=== PATIENT | female | born 1970 | race Caucasian/White ===

== ENCOUNTER 2019-04-07 09:26 | Outpatient (CLI) | payer OTHER, SELFPAY ==
[2019-04-07 10:25] LABS: Alanine Aminotransferase 14 U/L (4-35); Albumin Level 4.3 g/dL (3.5-5.1); Alkaline Phosphatase 56 U/L (38-126); Aspartate Amino Transferase 22 U/L (14-36); Bilirubin,Total 0.8 mg/dL (0.2-1.3); Blood Urea Nitrogen 8 mg/dL (7-17); Calcium 9.2 mg/dL (8.4-10.2); Carbon Dioxide 27 mmol/L (22-30); Chloride 100 mmol/L (98-107); Estimated Glomerular Filt Rate > 60; Glucose 100 mg/dL (65-105); Potassium 3.8 mmol/L (3.4-5.0); Sodium 136 mmol/L (137-145)
[2019-04-07 10:40] LABS: Hemoglobin A1C 5.9 % (<5.7)
[2019-04-10 23:53] LABS: Vitamin D 1,25 (OH)2 Total 45 pg/mL (18-72); Vitamin D2 1,25 (OH)2 <8 pg/mL; Vitamin D3 1,25 (OH)2 45 pg/mL
== END 2019-04-07 09:27 | disposition home or self-care (01) ==
PROVIDERS: PCP Emergency Medicine; Visit Provider Emergency Medicine
DX: R73.9 Hyperglycemia, unspecified (principal); E78.5 Hyperlipidemia, unspecified; E11.9 Type 2 diabetes mellitus without complications
CPT/HCPCS: 36415; 80053; 82652; 83036

== ENCOUNTER 2019-07-02 07:38 | Outpatient (CLI) | payer OTHER, SELFPAY ==
[2019-07-02 07:58] LABS: Basophils Percent Auto 0.7 % (0.2-1.2); Eosinophils Absolute Auto 0.2 K/mm3 (0-0.3); Hematocrit 40.3 % (37.0-47.0); Hemoglobin 13.4 g/dL (12.0-15.0); Immature Granulocyte Absolute 0.01 K/mm3 (0.00-0.031); Immature Granulocyte Percent A 0.2 % (0-0.5); Lymphocytes Absolute Auto 2.21 K/mm3 (0.9-3.2); Lymphocytes Percent Auto 36.9 % (18.3-44.2); Mean Corpuscular HGB Conc 33.3 g/dl (32-36); Mean Corpuscular Hemoglobin 30.3 pg (26-34); Mean Corpuscular Volume 91.2 fl (80-100); Mean Platelet Volume 11.9 fl (7.4-10.4); Monocytes Absolute Auto 0.6 K/mm3 (0.1-0.6); Monocytes Percent Auto 9.7 % (2.6-8.5); Neutrophils Absolute Auto 2.9 K/mm3 (1.3-6.7); Neutrophils Percent Auto 48.5 % (45.5-73.1); Platelet Count Result 200 k/mm3 (150-375); Red Blood Count 4.42 M/mm3 (4.2-5.4); Red Cell Distribution Width 12.8 % (11.5-14.5)
--- NOTE | 2019-07-02 08:02 | ECG_ITS ---
Measurements Intervals [place] Rate: 47 P: 40 RI: 132 QRS: 53 QRSD: 85 T: 32 QT: 446 QTc: 397 Interpretive Statements SINUS BRADYCARDIA BASELINE ARTIFACT- II, III, AVF ABNORMAL ECG Electronically Signed On 07-02-2019 8:18:15 CDT by aTe Aggarwal D.O.
[2019-07-02 08:12] LABS: Alanine Aminotransferase 12 U/L (4-35); Albumin Level 4.1 g/dL (3.5-5.1); Alkaline Phosphatase 54 U/L (38-126); Aspartate Amino Transferase 19 U/L (14-36); Bilirubin,Total 0.4 mg/dL (0.2-1.3); Blood Urea Nitrogen 15 mg/dL (7-17); Calcium 9.1 mg/dL (8.4-10.2); Carbon Dioxide 28 mmol/L (22-30); Chloride 103 mmol/L (98-107); Estimated Glomerular Filt Rate > 60; Glucose 109 mg/dL (65-105); Sodium 136 mmol/L (137-145)
[2019-07-02 08:19] LABS: Hemoglobin A1C 5.8 % (<5.7)
== END 2019-07-02 07:39 | disposition home or self-care (01) ==
PROVIDERS: PCP Emergency Medicine; Visit Provider Emergency Medicine
DX: R53.1 Weakness (principal); R53.83 Other fatigue; R00.2 Palpitations; E11.9 Type 2 diabetes mellitus without complications; E78.5 Hyperlipidemia, unspecified
CPT/HCPCS: 36415; 80053; 83036; 84443; 85025; 93005

== ENCOUNTER 2020-07-15 10:23 | Outpatient (CLI) | payer OTHER, SELFPAY ==
[2020-07-15 10:53] LABS: Alanine Aminotransferase 17 U/L (4-35); Albumin Level 4.2 g/dL (3.5-5.1); Alkaline Phosphatase 57 U/L (38-126); Anion Gap 6 mmol/L (8-16); Aspartate Amino Transferase 26 U/L (14-36); Bilirubin,Total 0.5 mg/dL (0.2-1.3); Blood Urea Nitrogen 16 mg/dL (7-17); Calcium 9.1 mg/dL (8.4-10.2); Carbon Dioxide 28 mmol/L (22-30); Chloride 104 mmol/L (98-107); Estimated Glomerular Filt Rate > 60; Glucose 108 mg/dL (65-105); Potassium 3.9 mmol/L (3.4-5.0); Sodium 138 mmol/L (137-145)
[2020-07-20 12:02] LABS: Vitamin D 1,25 (OH)2 Total 45 pg/mL (18-72); Vitamin D2 1,25 (OH)2 <8 pg/mL; Vitamin D3 1,25 (OH)2 45 pg/mL
== END 2020-07-15 10:24 | disposition home or self-care (01) ==
LOC: ANHLAB 10:25
PROVIDERS: PCP Emergency Medicine; Visit Provider Emergency Medicine
DX: R73.9 Hyperglycemia, unspecified (principal); E55.9 Vitamin D deficiency, unspecified; I10 Essential (primary) hypertension
CPT/HCPCS: 36415; 80053; 82652; 83036

== ENCOUNTER → 2020-08-27 09:12 | Outpatient (CLI) | payer OTHER, SELFPAY ==
--- NOTE | ~2020-08-27 | MMUS_ITS ---
EXAMINATION: MM diagnostic chilango BI w suzy, US breast RT limited HISTORY: Palpable lump of the upper outer right breast TECHNIQUE: Craniocaudal, mediolateral, and mediolateral oblique 3-D tomosynthesis images of the breas ts were performed and synthetic 2-D images were generated. Magnification views of the left breast are also obtained. CAD analysis was submitted and interpreted. High resolution right breast ultrasound w as performed. COMPARISON: No prior mammogram comparison BREAST PARENCHYMAL COMPOSITION: The breasts are almost entirely fatty. FINDINGS: MAMMOGRAPHIC FINDINGS: Right breast: There is no evidence of suspicious mass, calcification, or architectural distortion to suggest malignancy. Left breast: There are grouped fine pleomorphic calcifications in the posterior third breast at the 6 :00 location 12 to 14 cm from the nipple. ULTRASOUND: There is no evidence of focal abnormal solid or cystic mass in the vicinity of the palpable abnormali ty of the right breast. IMPRESSION: 1. Suspicious calcifications in the left breast. Stereotactic biopsy is recommended. 2. No specific mammographic or sonographic correlate is identified for the reported palpable abnormal ity of concern in the right breast. Further evaluation at this time should be based on clinical asses sment. Continued follow-up physical examination is recommended. BI-RADS category 4, suspicious findings. Reviewed, dictated and finalized at location A. IMPRESSION: 1. Suspicious calcifications in the left breast. Stereotactic biopsy is recomme nded. 2. No specific mammographic or sonographic correlate is identified for the repo rted palpable abnormality of concern in the right breast. Further evaluation at this time should be based on clinical assessment. Continued follow-up physical examination is recommended. BI-RADS category 4, suspicious findings.
== END ==
PROVIDERS: Visit Provider Emergency Medicine
DX: N63.10 Unspecified lump in the right breast, unspecified quadrant (principal); R92.8 Other abnormal and inconclusive findings on diagnostic imaging of breast
CPT/HCPCS: 76642; 77062; 77066; G0279

== ENCOUNTER → 2020-12-24 07:47 | Outpatient (CLI) | payer OTHER, SELFPAY ==
--- NOTE | ~2020-12-24 | MMUS_ITS ---
EXAMINATION: MM diagnostic chilango LT w suzy, US breast LT limited HISTORY: Follow-up left breast calcifications TECHNIQUE: Additional 3-D tomosynthesis images of the left breast were performed and synthetic 2-D im ages were generated. CAD analysis was submitted and interpreted. High resolution Limited left breast ultrasound was performed. COMPARISON: 08/27/2020 BREAST PARENCHYMAL COMPOSITION: Breast composed of scattered areas of fibroglandular density. FINDINGS: MAMMOGRAPHIC FINDINGS: There are clustered indeterminate pleomorphic calcifications in the lower central aspect of the left breast posteriorly which have increased slightly in number and density. No discrete mass or oracle technical architect ural distortion. ULTRASOUND: Limited left breast ultrasound: Normal heterogeneous echotexture without focal mass. IMPRESSION: 1. Slightly increased number and density of pleomorphic left breast calcifications. 2. Stereotactic left breast biopsy recommended. BI-RADS category 4, suspicious findings. Reviewed, dictated and finalized at location A. IMPRESSION: 1. Slightly increased number and density of pleomorphic left breast calcificati ons. 2. Stereotactic left breast biopsy recommended. BI-RADS category 4, suspicious findings.
== END ==
PROVIDERS: PCP Emergency Medicine; Visit Provider Emergency Medicine
DX: R92.8 Other abnormal and inconclusive findings on diagnostic imaging of breast (principal)
CPT/HCPCS: 76642; 77061; 77065; G0279

== ENCOUNTER 2021-01-05 12:04 | Outpatient (CLI) | payer OTHER, SELFPAY ==
--- NOTE | ~2021-01-05 | MM_ITS ---
EXAMINATION: MM stereotactic bx LT, MM post biopsy diagnostic LT, MM stereotactic specimen LT, Specim en Radiograph, Tissue Marker Clip Placement, Unilateral Mammogram DATE: 01/05/2021 13:36 (accession [id number]), 01/05/2021 13:37 (accession [id number]), 01/05 13:37 (accession [id number]) INDICATION: Abnormal mammogram: Pleomorphic microcalcifications in the lower central left breast. TECHNIQUE AND FINDINGS: The risks and potential benefits of the procedure were discussed with the patient and written informe d consent was obtained. Timeout procedure was performed. The patient was placed in the prone position on the dedicated stereotactic table with the left breast in craniocaudal/caudocranial/mediolateral/l ateromedial compression, and the area of interest was localized and targeted utilizing digital imagin g with stereotaxis. After sterile preparation of the skin, 1% lidocaine was utilized for local anesthesia at the skin pun cture site and 1% lidocaine with epinephrine was utilized for deeper local anesthesia/is about the bi opsy site. A 9G Odoo (formerly OpenERP) vacuum assisted biopsy needle was advanced to the level of the calcification o f interest from an inferior approach utilizing stereotactic guidance and a total of 12 tissue core bi opsies were obtained. A specimen radiograph demonstrates that the calcifications of interest are included within the tissue cores. A tissue marker clip was then placed at the biopsy site. A digital mammographic exposure co nfirmed the successful deployment of the biopsy marker. The needle was removed and hemostasis was ac hieved. A sterile bandage was applied. The patient tolerated the procedure well and there is no radha dence of significant immediate complication. The patient was given verbal as well as written postpro cedural instructions prior to discharge from the department. Tissue cores were submitted to surgical pathology for histologic analysis. A 2-view right unilateral digital mammogram was obtained post procedure, demonstrating the tissue mar ker clip in expected position. IMPRESSION: 1. Successful stereotactic biopsy of lower central left breast microcalcifications, followed by tis orlin marker clip placement. Please refer to pathology report for histologic analysis. Reviewed, dictated and finalized at Location A. Reviewed, dictated and finalized at location A. SPRAYER IMPRESSION: 1. Successful stereotactic biopsy of lower central left breast microcalcifica tions, followed by tissue marker clip placement. Please refer to pathology rep ort for histologic analysis. IMPRESSION: 1. Successful stereotactic biopsy of lower central left breast microcalcifica tions, followed by tissue marker clip placement. Please refer to pathology rep ort for histologic analysis.
== END 2021-01-05 12:05 | disposition home or self-care (01) ==
PROVIDERS: PCP Emergency Medicine; Visit Provider Emergency Medicine
DX: R92.1 Mammographic calcification found on diagnostic imaging of breast (principal)
CPT/HCPCS: 19081; 77065; 88305; A4648

== ENCOUNTER 2021-09-29 06:37 | Outpatient (CLI) | payer OTHER, SELFPAY ==
[2021-09-29 07:16] LABS: LDL Cholesterol Direct 108 mg/dL
[2021-09-29 07:37] LABS: Alanine Aminotransferase 11 U/L (6-35); Alkaline Phosphatase 42 U/L (38-126); Anion Gap 8 mmol/L (8-16); Aspartate Amino Transferase 21 U/L (14-36); Bilirubin,Total 0.7 mg/dL (0.2-1.3); Blood Urea Nitrogen 25 mg/dL (7-17); Calcium 9.2 mg/dL (8.4-10.2); Carbon Dioxide 27 mmol/L (22-30); Chloride 102 mmol/L (98-107); Estimated Glomerular Filt Rate > 60; Glucose 116 mg/dL (65-110); HDL Direct 40 mg/dL; Sodium 137 mmol/L (137-145); Triglycerides 164 mg/dL (<150)
[2021-09-29 07:56] LABS: Hemoglobin A1C 5.5 % (<5.7)
[2021-09-29 07:57] LABS: Cholesterol 188 mg/dL (0-200)
== END 2021-09-29 06:38 | disposition home or self-care (01) ==
LOC: ANHLAB 06:39
PROVIDERS: PCP Emergency Medicine; Visit Provider Emergency Medicine
DX: R73.9 Hyperglycemia, unspecified (principal); I10 Essential (primary) hypertension
CPT/HCPCS: 36415; 80053; 80061; 83036

== ENCOUNTER 2022-04-29 07:32 | Outpatient (CLI) | payer OTHER, SELFPAY ==
[2022-04-29 08:11] LABS: Alanine Aminotransferase 16 U/L (6-35); Albumin Level 3.8 g/dL (3.5-5.1); Alkaline Phosphatase 40 U/L (38-126); Anion Gap 4 mmol/L (8-16); Aspartate Amino Transferase 20 U/L (14-36); Bilirubin,Total 0.4 mg/dL (0.2-1.3); Blood Urea Nitrogen 19 mg/dL (7-17); Calcium 8.3 mg/dL (8.4-10.2); Carbon Dioxide 28 mmol/L (22-30); Chloride 107 mmol/L (98-107); Estimated Glomerular Filt Rate > 60; Glucose 104 mg/dL (65-110); Potassium 4.3 mmol/L (3.4-5.0); Sodium 139 mmol/L (137-145)
[2022-04-29 08:31] LABS: Hemoglobin A1C 5.7 % (<5.7)
== END 2022-04-29 07:33 | disposition home or self-care (01) ==
PROVIDERS: PCP Emergency Medicine; Visit Provider Emergency Medicine
DX: R73.9 Hyperglycemia, unspecified (principal); I10 Essential (primary) hypertension
CPT/HCPCS: 36415; 80053; 83036

== ENCOUNTER 2022-05-29 13:03 | Outpatient (CLI) | payer OTHER, SELFPAY ==
--- NOTE | 2022-05-29 13:20 | ECG_ITS ---
Measurements Intervals [place] Rate: 60 P: 50 MA: 159 QRS: 42 QRSD: 67 T: 37 QT: 390 QTc: 391 Interpretive Statements SINUS RHYTHM BORDERLINE ECG COMPARED TO ECG 07/02/2019 08:10:06 SINUS RHYTHM NOW PRESENT Electronically Signed On 05-29-2022 17:05:33 CDT by Floyd Conley M.D.
[2022-05-29 14:13] LABS: Basophils Percent Auto 0.5 % (0.2-1.2); Eosinophils Absolute Auto 0.3 K/mm3 (0-0.3); Eosinophils Percent Auto 3.7 % (0-4.4); Hematocrit 38.8 % (37.0-47.0); Hemoglobin 12.7 g/dL (12.0-15.0); Immature Granulocyte Absolute 0.03 K/mm3 (0.00-0.031); Immature Granulocyte Percent A 0.4 % (0-0.5); Lymphocytes Absolute Auto 3.26 K/mm3 (0.9-3.2); Lymphocytes Percent Auto 38.1 % (18.3-44.2); Mean Corpuscular HGB Conc 32.7 g/dl (32-36); Mean Corpuscular Hemoglobin 29.8 pg (26-34); Mean Corpuscular Volume 91.1 fl (80-100); Mean Platelet Volume 11.3 fl (7.4-10.4); Monocytes Absolute Auto 0.9 K/mm3 (0.1-0.6); Monocytes Percent Auto 10.4 % (2.6-8.5); Neutrophils Percent Auto 46.9 % (45.5-73.1); Platelet Count Result 230 k/mm3 (150-375); Red Blood Count 4.26 M/mm3 (4.2-5.4); Red Cell Distribution Width 12.7 % (11.5-14.5); White Blood Count 8.6 K/mm3 (4.5-10.0)
== END 2022-05-29 13:04 | disposition home or self-care (01) ==
LOC: ANHSURGERY 13:07
PROVIDERS: PCP Emergency Medicine; Visit Provider Obstetrics & Gynecology
DX: D21.9 Benign neoplasm of connective and other soft tissue, unspecified (principal); I10 Essential (primary) hypertension; Z01.818 Encounter for other preprocedural examination
CPT/HCPCS: 36415; 85025; 86850; 86900; 86901; 93005

== ENCOUNTER 2022-06-02 01:35 | Day surgery (SDC) | payer OTHER, SELFPAY ==
[2022-05-26 10:38] VITALS: BMI 35.6
--- NOTE | 2022-05-26 10:43 | PC.NURSE ---
Report to the Outpatient Waiting Room, entrance under the green pavilion located off [facility], at time 6:00 on date 06/02/22. Planned Procedure Time: 7:30. Time changes happen often and if your time is changed the preop area will call you the afternoon before. - You and your visitor will be asked to self-screen and do not enter if you have any COVID symptoms. - A mask is optional within the hospital at this time. Patients may have clear liquids (water, carbonated beverages, clear teas, apple juice) until 3 hours prior to surgery (4:30) with a maximum of 20 ounces. - No food from midnight until time of surgery Take the following medications with a SIP of water the morning of surgery: METOPROLOL, INHALER DO NOT STOP ANY OF YOUR OTHER PRESCRIPTION MEDICATIONS PRIOR TO SURGERY EXCEPT THE FOLLOWING Medications to discontinue per physician: VITAMINS/SUPPLEMENTS Date to take last dose: 05/29/22 Please no make-up, nail maldivian, hairspray, perfume, deodorant, or body powder the day of surgery. No jewelry (including any body piercings) or valuables the day of surgery, leave them at home. Please take a shower or bath the night before, or the morning of, surgery with an antibacterial soap. Wear comfortable, loose fitting clothing. - Jewelry must be removed prior to entering the operating room. Rings and piercings that are not removed may be cut off. - The hospital will not accept responsibility for valuables. - Please leave all valuables, including medications, at home the day of surgery. If you are going home after surgery, a licensed minibus driver must drive you home. - NO public transportation without another adult if you receive anesthesia. - We recommend that an adult stay with you for 24 hours following discharge. - We also recommend that you do not drive, make important decision, drink alcoholic beverages, or take any drugs that were not prescribed by your health care provider for at least 24 hours after your discharge time. Follow any additional instructions given to you from your surgeon. If you or anyone in your household have experienced Covid symptoms in the past week, please notify your surgeon or the nurse liaison at the phone number below for possible testing. Telephone instructions given to PT - HETAL ROBLES and asked if any additional questions and then verbalized understanding. Patient advised to call surgeon office or pre surgery nurse liaison [phone] if any additional questions.
--- NOTE | 2022-05-30 13:03 | PM.IMHP ---
H&P: HPI History of Present Illness Date/Time: 05/30/22 13:03 Chief Complaint: Enlarged uterus with uterine fibroids. Family history of uterine cancer and history of breast cancer Narrative: This is a very sweet 52-year-old female 2 para 2 who is admitted for robotic hysterectomy and bilateral salpingo-oophorectomy secondary to an enlarged uterus. She had been on tamoxifen and had heavy bleeding. She has a history of breast cancer endometrial biopsy was benign. Significantly her mother has stage IV uterine cancer. Risks and benefits of this procedure reviewed including but not exclusive of , aspiration pneumonia, bleeding, transfusion, perforation injury to bowel, bladder, ureters, or other internal organs with the need for laparotomy. She received the ACOG handout entitled hysterectomy as well as the [facility] handout. She had all questions answered. She asked to proceed PMFSH Past Medical History Medical History (Updated 05/30/22 @ 13:07 by Surya Harvey MD) Hyperglycemia Vitamin D deficiency disease Family History Family History Father Hypertension Family history of cardiovascular disease Mother Hypertension Family history of cardiovascular disease Family history of arthritis Sibling Asthma Social History Social History Social History: Patient drinks coffee daily, and walks for exercise daily. 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 Gender identity (if verbalized by the patient): Female Sexual Orientation (if Verbalized by the Patient): Straight or Heterosexual Spiritual care concerns: No Meds Home Medications and Allergies Home Medications Medication Instructions Recorded Confirmed Type aspirin 81 mg chewable tablet 81 mg PO DAILY #90 tabs 12/09/21 05/26/22 Rx losartan 50 mg-hydrochlorothiazide See Rx Instructions .Route 12/09/21 05/26/22 Rx 12.5 mg tablet .COMPLEX #90 tabs albuterol sulfate 90 mcg/actuation See Rx Instructions .Route 12/14/21 05/26/22 Rx aerosol inhaler .COMPLEX #25.5 grams metoprolol succinate 100 mg See Rx Instructions .Route 12/14/21 05/26/22 Rx tablet,extended release 24 hr .COMPLEX #90 tabs cholecalciferol (vitamin D3) 1,250 See Rx Instructions .Route 04/10/22 05/26/22 Rx mcg (50,000 unit) capsule .COMPLEX #12 caps tamoxifen 20 mg tablet 20 mg PO DAILY 05/26/22 05/26/22 History Allergies Allergy/AdvReac Type Severity Reaction Status Date / Time No Known Allergies Allergy Unknown Verified 05/26/22 10:35 Exam Const: General: cooperative, healthy appearing, comfortable, well groomed and overweight Orientation/consciousness: oriented to person, oriented to place and oriented to time HENMT: Head: normal to inspection Resp: Effort & Inspection: normal respiratory effort Cardio: Rate: regular rate Rhythm: regular rhythm Heart sounds: S1 normal heart sound present and S2 normal heart sound present GI: Inspection: normal to inspection Auscultation: normal bowel sounds : External Female Exam: normal external appearance Speculum Exam - Vagina: normal appearance of the vagina Speculum Exam - Cervix: Cervical os closed Bimanual exam- vagina & uterus: enlarged Bimanual Exam- Adnexa, other: normal adnexae Assessment and Plan Assessment and plan (1) Uterine fibroids affecting : Code(s): O34.10 - Maternal care for benign tumor of corpus uteri, unspecified trimester; D25.9 - Leiomyoma of uterus, unspecified Status: Acute (2) Vaginal bleeding: Code(s): N93.9 - Abnormal uterine and
--- NOTE | 2022-06-01 10:39 | WPDANESEPPF ---
Anes - Initial Pre Proc Eval Procedure: Operation Date: 06/02/22 07:30 Proposed Procedures p Robotic Assisted Total Vaginal Hysterectomy with Bilateral Salpingo-oophorectomy - Surya Harvey MD Date/Time: 06/01/22 10:39 Surgeon: Surya Harvey MD Pre Op Diagnosis: Hx of Breast Ca, Fibroids,Pain,Fam Hx Uterine Ca Patient Data Age: 52 Gender: F Height: 1.57 m Weight: 88.45 kg Allergies Allergy/AdvReac Type Severity Reaction Status Date / Time No Known Allergies Allergy Unknown Verified 05/26/22 10:35 Home Medications Medication Instructions Recorded Confirmed Type aspirin 81 mg chewable tablet 81 mg PO DAILY #90 tabs 12/09/21 06/02/22 Rx losartan 50 mg-hydrochlorothiazide See Rx Instructions .Route 12/09/21 06/02/22 Rx 12.5 mg tablet .COMPLEX #90 tabs albuterol sulfate 90 mcg/actuation See Rx Instructions .Route 12/14/21 06/02/22 Rx aerosol inhaler .COMPLEX #25.5 grams metoprolol succinate 100 mg See Rx Instructions .Route 12/14/21 06/02/22 Rx tablet,extended release 24 hr .COMPLEX #90 tabs cholecalciferol (vitamin D3) 1,250 See Rx Instructions .Route 04/10/22 06/02/22 Rx mcg (50,000 unit) capsule .COMPLEX #12 caps tamoxifen 20 mg tablet 20 mg PO DAILY 05/26/22 05/26/22 History hydrocodone 5 mg-acetaminophen 325 1 tablet PO Q4H PRN pain #30 tabs 06/02/22 Rx mg tablet Patient hx anesthesia problems: none Family hx anesthesia problems: none Results Review: All pre-operative results and documents have been reviewed as part of the pre-operative evaluation. FORMERLY [facility] Past Medical History Medical History (Updated 06/01/22 @ 10:40 by Say Ruth DO) Asthma Breast cancer HTN (hypertension) Hyperglycemia Vitamin D deficiency disease Surgical History Surgical History (Updated 06/01/22 @ 10:40 by Say Ruth DO) History of Family History Family History Father Hypertension Family history of cardiovascular disease Mother Hypertension Family history of cardiovascular disease Family history of arthritis Sibling Asthma Social History Social History Social History: Patient drinks coffee daily, and walks for exercise daily. 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 Gender identity (if verbalized by the patient): Female Sexual Orientation (if Verbalized by the Patient): Straight or Heterosexual Spiritual care concerns: No Anes - Eval Final PreProcedure Day of Procedure 06/01/22 10:39 Patient weight: obese Heart: regular rate and rhythm Lungs: clear to auscultation Airway: Mallampati scale class II Neurological: alert and oriented Last oral intake: >/= 8 hours ASA classification: III Emergent: no Anesthetic plan: proceed Anesthesia type and monitoring: general ETT and standard monitoring Results Review: All pre-operative results and documents have been reviewed as part of the pre-operative evaluation. Informed Consent: The patient's anesthetic plan and its attendant risks and benefits were discussed with the patient/family/POA. Questions were solicited and answers provided to the satisfaction of the patient/family/POA.
[2022-06-02] VITALS (11 sets, daily range): BP systolic 89–140; BP diastolic 52–74; PULSE 52–85; RESP 12–20; TEMP 36.1–37.3; O2SAT 94–100
--- NOTE | 2022-06-02 06:21 | WPDHPUPDATE1 ---
History and Physical Update Update Date/Time: 06/02/22 06:21 History and Physical has been reviewed, including an updated exam of the patient. There are NO changes in the patient's condition. Risks, benefits, and alternatives have been discussed and questions answered. Patient agrees to proceed with procedure.
[2022-06-02] MEDS: ACETAMINOPHEN 500 MG TABLET 1000 MG PO (06:38)
[2022-06-02] MEDS: LACTATED RINGERS 1,000 ML 30 ML IV CONT ×2 (06:45→08:54)
[2022-06-02] MEDS: KETOROLAC 15 MG/ML VIAL (*BKC) IV PUSH (06:49)
[2022-06-02] MEDS: ceFAZolin 2 GM/D5W 50 ML 2 GM/50 ML BAG IVPB (07:30)
--- NOTE | 2022-06-02 08:39 | P.OP_ITS ---
Procedure Note - Detailed Date of Procedure 06/02/22 Pre-op Diagnosis Hx of Breast Ca, Fibroids,Pain,Fam Hx Uterine Ca Post-op Diagnosis Same Procedure Performed Robotic total vaginal hysterectomy and bilateral salpingo-oophorectomy Surgeon Surya Harvey MD Anesthesia General Indications this 52-year-old with uterine fibroids and history of breast cancer with mother with history of stage IV endometrial cancer negative endometrial sampling. Findings Enlarged fibroid uterus. Normal-appearing ovaries and tubes. Description of Procedure Patient was prepped draped in the normal sterile fashion placed in the dorsal lithotomy position. Under excellent general trach anesthesia weighted speculum placed in posterior fornix vagina. Anterior lip of the cervix grasped with single-tooth tenaculum. Uterus sounded to 11cm. Serial dilatation with fragmented dilators performed followed by passage of the 10. RANDY and the 3. 0.5 cold cup. Next the 16 Hungarian catheter was placed in the bladder and draini ng clear urine. The other instruments removed and the gloves were changed. A supraumbilical incision made the Veress needle passed in the abdomen. Abdomen filled with CO2 gas [id number]. The 8mm trocar advanced in the abdomen. Downside visualized no injury seen. Patient placed in Trendelenburg and right and left lateral quadrant incisions made. 8Mm trocars advanced under direct visualizatio n. A right upper quadrant incision made. The 8mm trocar advanced under direct visualization assuring no injury. The robot was docked. Attention was turned to the console. There were multiple adhesions anteriorly from the omentum to the anterior abdominal wall. These were sharply dissected and easily removed to facilitate visualization. The left round ligament was grasped, burned, cut. Anterior bladder flap formed by sharply dissecting the peritoneum and reflecting the bladder caudally away from the cervix and uterus to the opposite round ligament which was clamped, burned,. Next the infundibulopelvic structure on the left was skeletonized clamping burning cutting and bringing this to the previously cut round ligaments remove the left ovary and tube. In like fashion on the right infundibulopelvic structure was skeletonized clamping burning cutting and bringing this to the level of previously cut round ligament right. The cardinal broad ligaments on the left were serially skeletonized clamping burning cutting and bringing these down the lateral edge of the uterus and cervix until the very large tortuous vessels could be seen on the left these were individually clamped, burned, cut. In like fashion the cardinal broad ligaments on the right were serially skeletonized clamping burning cutting and hugging the cervix and uterus until the uterine vessels could be seen on the right. These were individually clamped, burned, cut and were noted to be very tortuous and large as well. Blanching of the uterus was noted a colpotomy incision was made. Cervix uterus ovaries and tubes removed through the vagina. The vagina was then closed with continuous running 0V lock from lateral edge to lateral edge back to the midline. Irrigation undertaken until clear blood loss estimated at25cc. The robot was undocked. The gas removed from the abdomen. The trocars removed and the incisions closed with 4 Monocryl and glue. Instruments removed from the vagina and the patient was awakened. All sponge, needle, instrument counts were correct. There were no immediate complications noted Estimated Blood Loss 25 Drains No Packing No Pathology Yes Complications No immediate complications Condition Stable Disposition PACU
--- NOTE | 2022-06-02 10:02 | PC.NURSE ---
This patient, Mili Pickard, was received from PACU on 06/02/22 at 1002. Patient/family oriented to unit policies and routines
[2022-06-02] MEDS: DEXTROSE 5%/LACTATED RINGERS 1,000 ML 125 ML IV CONT (10:21)
[2022-06-02] MEDS: KETOROLAC 30 MG/ML VIAL (*BKC) IV PUSH (12:58)
--- NOTE | 2022-06-02 21:53 | P.DS_ITS ---
DS: Admitting Diagnosis Discharge Date 06/03/2022 Admitting Diagnosis vaginal bleeding/uterine fibroids DS: Discharge Diagnosis Discharge Diagnosis (1) Breast cancer: Code(s): C50.919 - Malignant neoplasm of unspecified site of unspecified female breast Status: Acute (2) Vaginal bleeding: Code(s): N93.9 - Abnormal uterine and vaginal bleeding, unspecified Status: Acute (3) Uterine fibroids affecting : Code(s): O34.10 - Maternal care for benign tumor of corpus uteri, unspecified trimester; D25.9 - Leiomyoma of uterus, unspecified Status: Acute DS: Summary Hospital Course Reason for hospitalization: patient was admitted for robotic hysterectomy and bilateral salpingo- oophorectomy Hospital Course: patient underwent unremarkable robotic total vaginal hysterectomy bilateral salpingo-oophorectomy on 05/02/2022. Hospital course was unremarkable. She remained afebrile. She was up, voiding without difficulty, ambulating, eating regular diet, generally without complaints. Time Spent with Patient Time attestation: Total time spent providing and/or coordinating discharge services: Exam Const: General: cooperative, healthy appearing, comfortable and overweight Orientation/consciousness: oriented to person, oriented to place and oriented to time HENMT: Head: normal to inspection Chest: Chest palpation & inspection: normal inspection of the chest Resp: Effort & Inspection: normal respiratory effort Cardio: Rate: regular rate Rhythm: regular rhythm Heart sounds: S1 normal heart sound present and S2 normal heart sound present GI: Inspection: normal to inspection and incision ( Wounds clean dry and intact) Auscultation: normal bowel sounds DS: Data Data Completed and Pending Pending studies at discharge: Pending at discharge 06/02/22 08:06 Surgical [PTH] Routine Discharge Plan Discharge Patient Disposition: Home, Self-Care Stand Alone Forms: General Discharge Instructions Follow-up/Referrals: Surya Brice MD [Physician] - Discharge Medications: New hydrocodone-acetaminophen 5-325 mg tablet 1 tablet PO Q4H PRN (Reason: pain) Qty: 30 0RF No Action tamoxifen 20 mg Tablet 20 mg PO DAILY aspirin 81 mg tablet,chewable 81 mg PO DAILY Qty: 90 2RF losartan-hydrochlorothiazide 50-12.5 mg tablet See Rx Instructions .ROUTE .COMPLEX Qty: 90 2RF Hold Instructions: Provider Order Dose Instruction: TAKE 1 TABLET BY MOUTH DAILY Rx Instructions: TAKE 1 TABLET BY MOUTH DAILY metoprolol succinate 100 mg tablet extended release 24 hr See Rx Instructions .ROUTE .COMPLEX Qty: 90 1RF Dose Instruction: TAKE 1 TABLET DAILY Rx Instructions: TAKE 1 TABLET DAILY albuterol sulfate 90 mcg/actuation HFA aerosol inhaler See Rx Instructions .ROUTE .COMPLEX Qty: 25.5 2RF Dose Instruction: USE 2 INHALATIONS EVERY 4 TO 6 HOURS NEEDED FOR SHORTNESS OF BREATH OR WHEEZING Rx Instructions: USE 1 INHALATION EVERY 4 TO 6 HOURS ONLY NEEDED FOR SHORTNESS OF BREATH OR WHEEZING cholecalciferol (vitamin D3) 1,250 mcg (50,000 unit) capsule See Rx Instructions .ROUTE .COMPLEX Qty: 12 3RF Hold Instructions: Order Change Dose Instruction: TAKE 1 CAPSULE WEEKLY Label Comments: PT TAKES ON SUNDAY Rx Instructions: TAKE 1 CAPSULE WEEKLY
[2022-06-03 04:05] VITALS: BP 109/61; PULSE 66; RESP 18; TEMP 37
[2022-06-03] MEDS: IBUPROFEN 600 MG TABLET PO (04:16)
[2022-06-03 04:46] LABS: Basophils Percent Auto 0.1 % (0.2-1.2); Hematocrit 35.8 % (37.0-47.0); Hemoglobin 11.8 g/dL (12.0-15.0); Immature Granulocyte Absolute 0.06 K/mm3 (0.00-0.031); Immature Granulocyte Percent A 0.4 % (0-0.5); Lymphocytes Absolute Auto 2.07 K/mm3 (0.9-3.2); Lymphocytes Percent Auto 15.2 % (18.3-44.2); Mean Corpuscular Hemoglobin 30.3 pg (26-34); Mean Platelet Volume 11.3 fl (7.4-10.4); Monocytes Percent Auto 7.6 % (2.6-8.5); Neutrophils Absolute Auto 10.4 K/mm3 (1.3-6.7); Neutrophils Percent Auto 76.7 % (45.5-73.1); Platelet Count Result 196 k/mm3 (150-375); Red Blood Count 3.89 M/mm3 (4.2-5.4); Red Cell Distribution Width 13.1 % (11.5-14.5); White Blood Count 13.6 K/mm3 (4.5-10.0)
--- NOTE | 2022-06-03 07:53 | PM.GYNPNOP ---
RECOVERY ADVOCATE - A/P Postoperative Procedures: Procedures Operation Date: 06/02/22 07:30 Actual Procedure Side Surgeon p Robotic Assisted Total Vaginal Hysterectomy with Bilateral Salpingo-oophorectomy Bilateral Surya Harvey MD Postoperative day: 1 Postoperative status: doing well Postoperative plan: routine post-op care, ambulate, advance diet and discharge Time Spent With Patient Time: Total time spent is greater than 50% in coordination of care (as documented) at patient's floor/unit and/or counseling patient: Time with patient: less than 15 minutes RECOVERY ADVOCATE- PN:Subj Post-Op Subjective Date/time seen: 06/03/22 07:53 Subjective: patient has no complaints, patient desires discharge and pain is well controlled Exam Const: General: cooperative, healthy appearing, comfortable and overweight Orientation/consciousness: oriented to person, oriented to place and oriented to time Resp: Effort & Inspection: normal respiratory effort Cardio: Rate: regular rate Rhythm: regular rhythm Heart sounds: S1 normal heart sound present and S2 normal heart sound present GI: Inspection: normal to inspection and incision (cdi) RECOVERY ADVOCATE - PN: Obj Data Vital Signs Vital Signs: Vital Signs - 24 hr 06/02/22 08:54 06/02/22 09:05 06/02/22 09:20 Temperature 97.2 F L Pulse Rate 64 58 L 55 L Respiratory Rate 14 12 12 Blood Pressure 89/55 L 95/60 L 99/68 L Pulse Oximetry 98 100 96 Oxygen Delivery Simple Face Mask Simple Face Mask Room Air Oxygen Flow Rate 8 8 06/02/22 09:35 06/02/22 09:50 06/02/22 10:10 Temperature 97.9 F Pulse Rate 52 L 52 L 57 L Respiratory Rate 12 12 16 Blood Pressure 107/68 110/67 106/52 L Pulse Oximetry 95 98 97 Oxygen Delivery Room Air Room Air Oxygen Flow Rate 06/02/22 13:00 06/02/22 16:15 06/02/22 20:00 Temperature 98.2 F 98.7 F 99.1 F Pulse Rate 78 85 79 Respiratory Rate 14 16 18 Blood Pressure 120/74 115/68 121/69 Pulse Oximetry 94 96 100 Oxygen Delivery Oxygen Flow Rate 06/02/22 20:00 06/02/22 23:20 06/02/22 23:20 Temperature 98.2 F Pulse Rate 77 Respiratory Rate 18 Blood Pressure 108/66 Pulse Oximetry 99 Oxygen Delivery Room Air Room Air Oxygen Flow Rate 06/03/22 04:05 06/03/22 04:05 Temperature 98.6 F Pulse Rate 66 Respiratory Rate 18 Blood Pressure 109/61 Pulse Oximetry Oxygen Delivery Room Air Oxygen Flow Rate Intake/Output Intake/Output: Intake & Output 05/31/22 06/01/22 06/02/22 06/03/22 23:59 23:59 23:59 23:59 Intake Total 2710 Output Total 2580 Balance 130 Meds/Results Medications: Active Medications Generic Name Dose Route Start Last Admin Trade Name Freq PRN Reason Stop Dose Admin Hydrocodone Bitart/Acetaminophen 1 tab 06/02/22 09:56 Hydrocodone/Acetaminophen (*Crx) 5-325 Mg Tablet PO Q3H PRN Pain Rated 5 or Less Hydrocodone Bitart/Acetaminophen 1 tab 06/02/22 09:56 Hydrocodone/Acetaminophen (*Crx) 10-325 Mg Tablet PO Q3H PRN Pain Rated 6 or Greater Docusate Sodium 100 mg 06/02/22 09:56 06/02/22 17:32 Docusate Sodium 100 Mg Capsule PO Not Given BID [facility] Enoxaparin Sodium 40 mg 06/03/22 09:00 Enoxaparin 40 Mg/0.4 Ml Syringe SUB-Q DAILY [facility] Ibuprofen 600 mg 06/02/22 09:56 06/03/22 04:16 Ibuprofen 600 Mg Tablet PO 600 mg Q6H PRN Administration Cramping Ketorolac Tromethamine 30 mg 06/02/22 09:56 06/02/22 12:58 Ketorolac 30 Mg/Ml Vial (*Bkc) IV PUSH 06/07/22 09:55 30 mg Q6H PRN Administration Pain Rated 4-6 Naloxone HCl 0.1 mg 06/02/22 09:56 Naloxone Hcl 0.4 Mg/Ml Vial IV PUSH Q2M PRN Respiratory rate less than 10 Ondansetron HCl 4 mg 06/02/22 09:56 Ondansetron Inj 4 Mg/2 Ml Vial IV PUSH Q6H PRN Nausea And Vomiting Simethicone 80 mg 06/02/22 09:56 Simethicone 80 Mg Tab.Chew PO Q2H PRN Gas Labs 06/03/22 04:12 Labs: Laboratory Results - last
--- NOTE | 2022-06-03 07:57 | P.PNAN_ITS ---
Anes - Prog Note Post-Op Date/Time: 06/03/22 07:57 Cardiovascular status: normal Respiratory status: normal Airway patency: baseline Mental status: baseline Post-Op hydration status: normal Vital Signs: Last Vital Signs Temp 37.0 C 06/03/22 04:05 Pulse 66 06/03/22 04:05 Resp 18 06/03/22 04:05 BP 109/61 06/03/22 04:05 Pulse Ox 99 06/02/22 23:20 O2 Del Method Room Air 06/03/22 04:05 O2 Flow Rate 8 06/02/22 09:05 Pain Score (VAS): 02/28 I/O: Intake & Output 06/02/22 06/02/22 06/03/22 15:59 23:59 07:59 Intake Total 680 2030 Output Total 180 2400 Balance 500 -370 Laboratory Tests 06/03/22 04:12 06/03/22 04:12 WBC 13.6 H RBC 3.89 L Hgb 11.8 L Hct 35.8 L MCV 92.0 MCH 30.3 MCHC 33.0 RDW 13.1 Plt Count 196 MPV 11.3 H Immature Gran % (Auto) 0.4 Neut % (Auto) 76.7 H Lymph % (Auto) 15.2 L Mcpherson % (Auto) 7.6 Eos % (Auto) 0.0 Baso % (Auto) 0.1 L Lymph # (Auto) 2.07 Mcpherson # (Auto) 1.0 H Eos # (Auto) 0.0 Baso # (Auto) 0.0 Abs Immat Gran (auto) 0.06 H Absolute Neuts (auto) 10.4 H Absolute Nucleated RBC 0.0 Nucleated RBC % 0.0 Post-procedural complaints: none Patient Feedback: Patient satisfied with anesthetic care.
[2022-06-03 08:30] VITALS: BP 119/71; PULSE 80; RESP 16; TEMP 37.3; O2SAT 99
[2022-06-03] MEDS: DOCUSATE SODIUM 100 MG CAPSULE PO (08:31)
[2022-06-03] MEDS: ENOXAPARIN 40 MG/0.4 ML SYRINGE SUB-Q (08:31)
== END 2022-06-03 10:10 | disposition home or self-care (01) ==
LOC: ANHSURGERY 07:47 → ANHOB2 09:59
PROVIDERS: PCP Emergency Medicine; Visit Provider Obstetrics & Gynecology
PROC: (CPT 58552; principal; 2022-06-02 07:30)
DX: D25.2 Subserosal leiomyoma of uterus (principal); N84.0 Polyp of corpus uteri; N83.8 Other noninflammatory disorders of ovary, fallopian tube and broad ligament; R10.2 Pelvic and perineal pain; N93.9 Abnormal uterine and vaginal bleeding, unspecified; Z85.3 Personal history of malignant neoplasm of breast; Z80.49 Family history of malignant neoplasm of other genital organs; E55.9 Vitamin D deficiency, unspecified; I10 Essential (primary) hypertension; J45.909 Unspecified asthma, uncomplicated; Z79.51 Long term (current) use of inhaled steroids; Z79.82 Long term (current) use of aspirin; Z79.810 Long term (current) use of selective estrogen receptor modulators (SERMs); E66.9 Obesity, unspecified; Z68.36 Body mass index [BMI] 36.0-36.9, adult
CPT/HCPCS: 58552; S2900; 36415; 85025; 86850; 86900; 86901; 88307; 93005; 99199; A9270; J0690; J1100; J1170; J1650; J1885; J2250; J2370; J2405; J2704; J3010; J7030; J7120; J7121

== ENCOUNTER → 2022-06-13 09:21 | Outpatient (CLI) | payer OTHER, SELFPAY ==
--- NOTE | ~2022-06-13 | XR_ITS ---
EXAMINATION: XR_CERV2-3V_CR DATE: 06/13/2022 09:37 INDICATION: Neck pain. TECHNIQUE: 5 views of cervical spine were obtained. COMPARISON: None. FINDINGS: There is 2 mm retrolisthesis of C5 on C6. There is 6 degrees dextrocurvature of cervical sp ine. Vertebral body heights are normal. There is moderately decreased disc height at C5-C6. There is multilevel mild facet joint osteoarthritis. At C3-C4, there is moderate bilateral facet joint osteoar thritis. There is mild central canal stenosis at C5-C6. No prevertebral soft tissue swelling. IMPRESSION: 1. Moderate spondylosis at C5-C6 and mild spondylosis at other levels. Reviewed, dictated and finalized at location A.
== END ==
PROVIDERS: PCP Emergency Medicine; Visit Provider Emergency Medicine
DX: M47.812 Spondylosis without myelopathy or radiculopathy, cervical region (principal)
CPT/HCPCS: 72040

== ENCOUNTER 2023-01-27 07:21 | Outpatient (CLI) | payer OTHER, SELFPAY ==
[2023-01-27 08:40] LABS: Alanine Aminotransferase 24 U/L (6-35); Albumin Level 4.2 g/dL (3.5-5.1); Alkaline Phosphatase 56 U/L (38-126); Anion Gap 10 mmol/L (8-16); Aspartate Amino Transferase 30 U/L (14-36); Bilirubin,Total 0.6 mg/dL (0.2-1.3); Blood Urea Nitrogen 19 mg/dL (7-17); Carbon Dioxide 26 mmol/L (22-30); Chloride 103 mmol/L (98-107); Estimated Glomerular Filt Rate > 60; Glucose 115 mg/dL (65-110); Potassium 3.6 mmol/L (3.4-5.0); Sodium 139 mmol/L (137-145)
[2023-01-31 15:21] LABS: Vitamin D 1,25 (OH)2 Total 46 pg/mL (18-72); Vitamin D2 1,25 (OH)2 <8 pg/mL; Vitamin D3 1,25 (OH)2 46 pg/mL
== END 2023-01-27 07:22 | disposition home or self-care (01) ==
LOC: ANHLAB 07:23
PROVIDERS: PCP Emergency Medicine; Visit Provider Emergency Medicine
DX: E55.9 Vitamin D deficiency, unspecified (principal); I10 Essential (primary) hypertension
CPT/HCPCS: 36415; 80053; 82652

== ENCOUNTER 2023-03-14 22:13 | Emergency (ER) | payer OTHER, SELFPAY ==
[2023-03-14] VITALS (7 sets, daily range): BP systolic 106–140; BP diastolic 66–94; PULSE 112–128; RESP 16–23; TEMP 37.1; O2SAT 88–95
--- NOTE | ~2023-03-14 | CT_ITS ---
EXAMINATION: CTA chest PE protocol DATE: 03/14/2023 23:51 INDICATION: Dyspnea. TECHNIQUE: Computed tomography angiography (CTA) of the chest was performed with 100 mL Omnipaque-350 intravenous contrast timed to evaluate the pulmonary arteries. Coronal maximum intensity projection 3D-reconstructions were created by the technologist. Automated exposure control and iterative reconst ruction technique were employed. The dose-length product was 857.74 mGy-cm. COMPARISON: None. FINDINGS: There is mild atelectasis in right middle lobe and lingula. There are airspace and groundgl ass opacities involving the upper lobes. No pleural effusion. There is extensive acute pulmonary embo li in all lobes including a saddle embolus in the main pulmonary artery. Main pulmonary is enlarged, consistent with pulmonary arterial hypertension. Right ventricular enlargement is noted, consistent w ith right heart strain. No pericardial effusion. There is a small sliding hiatal hernia. There is mil d thoracic spondylosis. IMPRESSION: 1. Extensive acute pulmonary emboli with right heart strain. I called this result to Dr. Gray. 2. Airspace and groundglass opacities involving the upper lobes, consistent with infarcts. Reviewed, dictated and finalized at location E. TY HOME DEMONSTRATION AGENT IMPRESSION: 1. Extensive acute pulmonary emboli with right heart strain. I called this resu lt to Dr. Gray. 2. Airspace and groundglass opacities involving the upper lobes, consistent wit h infarcts.
--- NOTE | ~2023-03-14 | XR_ITS ---
EXAMINATION: XR chest 2V DATE: 03/14/2023 22:43 INDICATION: Chest pain. Shortness of breath. TECHNIQUE: Frontal and lateral views of the chest were obtained. COMPARISON: None. FINDINGS: There is mild atelectasis in left lower lung zone. No pleural effusion or pneumothorax. The heart size is normal. IMPRESSION: 1. Mild atelectasis in left lower lung zone. Reviewed, dictated and finalized at location E. TABLE FARMING SUPERVISOR
--- NOTE | 2023-03-14 22:14 | ECG_ITS ---
Measurements Intervals [place] Rate: 117 P: 56 IN: 132 QRS: 55 QRSD: 82 T: 17 QT: 340 QTc: 476 Interpretive Statements SINUS TACHYCARDIA NONSPECIFIC ST & T-WAVE ABNORMALITY- ANTEROLAT/INF LEADS BASELINE ARTIFACT- I, II III, AVR, AVL, AVF ABNORMAL ECG ABNORMAL ECG COMPARED TO ECG 05/29/2022 13:37:[address] NOW PRESENT ST-T WAVE ABNORMALITY NOW PRESENT Electronically Signed On 03-15-2023 6:35:42 MATERIAL COMBINER by Tae Aggarwal D.O.
[2023-03-14 22:57] LABS: Basophils Percent Auto 0.5 % (0.2-1.2); Eosinophils Absolute Auto 0.2 K/mm3 (0-0.3); Eosinophils Percent Auto 2.6 % (0-4.4); Hematocrit 42.2 % (37.0-47.0); Hemoglobin 13.6 g/dL (12.0-15.0); Immature Granulocyte Absolute 0.02 K/mm3 (0.00-0.031); Immature Granulocyte Percent A 0.3 % (0-0.5); Lymphocytes Absolute Auto 2.46 K/mm3 (0.9-3.2); Lymphocytes Percent Auto 33.7 % (18.3-44.2); Mean Corpuscular HGB Conc 32.2 g/dl (32-36); Mean Corpuscular Hemoglobin 28.8 pg (26-34); Mean Corpuscular Volume 89.4 fl (80-100); Mean Platelet Volume 11.5 fl (7.4-10.4); Monocytes Absolute Auto 0.9 K/mm3 (0.1-0.6); Monocytes Percent Auto 12.5 % (2.6-8.5); Neutrophils Absolute Auto 3.7 K/mm3 (1.3-6.7); Neutrophils Percent Auto 50.4 % (45.5-73.1); Platelet Count Result 168 k/mm3 (150-375); Red Blood Count 4.72 M/mm3 (4.2-5.4); Red Cell Distribution Width 12.7 % (11.5-14.5); White Blood Count 7.3 K/mm3 (4.5-10.0)
[2023-03-14 23:09] LABS: Alanine Aminotransferase 22 U/L (6-35); Albumin Level 3.8 g/dL (3.5-5.1); Alkaline Phosphatase 53 U/L (38-126); Anion Gap 9 mmol/L (8-16); Aspartate Amino Transferase 30 U/L (14-36); Bilirubin,Total 0.3 mg/dL (0.2-1.3); Blood Urea Nitrogen 22 mg/dL (7-17); Calcium 8.5 mg/dL (8.4-10.2); Carbon Dioxide 23 mmol/L (22-30); Chloride 107 mmol/L (98-107); Estimated CRCL calculation 98 ml/min; Estimated Glomerular Filt Rate > 60; Glucose 143 mg/dL (65-110); Lipase 237 U/L (23-300); Potassium 3.5 mmol/L (3.4-5.0); Prothrombin Time 13.1 Seconds (11.1-14.7); Sodium 139 mmol/L (137-145)
[2023-03-14 23:10] LABS: Partial Thromboplastin Time 23.9 SECONDS (22.3-36.8)
[2023-03-14 23:27] LABS: Troponin I 0.102 ng/mL (0.000-0.034)
[2023-03-15] VITALS (18 sets, daily range): BP systolic 101–133; BP diastolic 70–81; PULSE 96–108; RESP 13–21; O2SAT 92–99
[2023-03-15] MEDS: ASPIRIN 81 MG CHEWABLE TABLET 324 MG PO (00:10)
--- NOTE | 2023-03-15 00:12 | ED.GENADULT ---
HPI - General Adult General Chief complaint: Chest Pain Stated complaint: CP/SOB Time Seen by Provider: 03/14/23 23:27 History of Present Illness HPI narrative: patient 53-year-old female presents emergency department with chief complaint of shortness of Breath. Patient reports that since Sunday she has been having progressive dyspnea with exertion and reports that subtle bit of tightness in her chest the patient reports she has prior history of breast cancer and is on tamoxifen reports that normally she can go to a spin class and do other physical activity without getting short of breath and this is acutely changed recently when the patient presented to triage she was 88% on room air and was tachycardic Related Data Home Medications Medication Instructions Recorded Confirmed tamoxifen 20 mg tablet 20 mg PO DAILY 05/26/22 02/22/23 Allergies Allergy/AdvReac Type Severity Reaction Status Date / Time No Known Allergies Allergy Unknown Verified 01/30/23 16:03 Review of Systems Review of Systems: A 10 system review of systems was completed on the patient and is negative except for what is stated in the HPI. Nursing and ancillary documentation was reviewed. PMFSH Past Medical History Medical History Asthma Breast cancer HTN (hypertension) Hyperglycemia Vitamin D deficiency disease Surgical History Surgical History H/O: hysterectomy History of Family History Family History Father Hypertension Family history of cardiovascular disease Mother Hypertension Family history of cardiovascular disease Family history of arthritis Sibling Asthma Social History Social History Social History: Patient drinks coffee daily, and walks for exercise daily. 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 HEAD: Normocephalic, atraumatic. EYES: PERRLA and EOMI. ENT: Nares clear, no rhinorrhea or epistaxis. Mucous membranes moist. NECK: Supple. CHEST: Clear to auscultation. No respiratory distress. HEART: tachycardic rate and rhythm. No murmur heard. Normal peripheral pulses. ABDOMEN: Soft, nontender, nondistended, normal active bowel sounds. EXTREMITIES: Normal range of motion. No edema. SKIN: Warm, dry, no rash. NEURO: No focal deficits. Alert and oriented x3. PSYCH: Normal mood and affect. Course Vital Signs Vital signs: Vital Signs Temperature 37.1 C 03/14/23 22:15 Pulse Rate 128 H 03/14/23 22:15 Respiratory Rate 16 03/14/23 22:15 Blood Pressure 140/94 H 03/14/23 22:15 Pulse Oximetry 88 L 03/14/23 22:15 Oxygen Delivery Room Air 03/14/23 22:15 Temperature 37.1 C 03/14/23 22:15 Pulse Rate 99 03/15/23 02:17 Respiratory Rate 17 03/15/23 02:17 Blood Pressure 101/70 03/15/23 02:56 Pulse Oximetry 95 03/15/23 02:17 Oxygen Delivery Nasal Cannula 03/14/23 22:45 Oxygen Flow Rate 2 03/14/23 22:45 Medical Decision Making [facility] Narrative Medical decision making narrative: differential diagnosis includes ACS, CHF, pulmonary embolism, pneumonia EKG did showed sinus tachycardia laboratory studies were obtained which showed a troponin of 0.102
[2023-03-15] MEDS: HEPARIN SODIUM 5,000 UNITS/ML VIAL 5500 UNITS IV PUSH (00:29)
[2023-03-15] MEDS: HEPARIN SOD/D5W 100 UNITS/ML 25,000 UNITS/250 ML BAG 12 UNITS IV CONT (00:30)
[2023-03-15 01:30] LABS: Procalcitonin 0.1 ng/mL
[2023-03-15 01:37] LABS: NT Pro B Type Natriuretic Pept 3120 pg/mL (19.9-100)
[2023-03-15 01:44] LABS: Troponin I 0.148 ng/mL (0.000-0.034)
[2023-03-15 01:53] LABS: Influenza A QL RT-PCR Positive (Negative); Influenza B QL RT-PCR Negative (Negative); RSV RNA, RT-PCR Negative (Negative); SARS-CoV-2 RNA PCR Negative (Negative)
--- NOTE | 2023-03-15 02:50 | PC.NURSE ---
Report to JAGRUTI Sethi at [facility]. States ready to accept pt. EMS called and ETA 30 min.
--- NOTE | 2023-03-15 13:46 | ECG_ITS ---
Measurements Intervals [place] Rate: 99 P: 67 SC: 139 QRS: 51 QRSD: 72 T: -15 QT: 330 QTc: 424 Interpretive Statements SINUS RHYTHM T WAVE ABNORMALITY IN ANTERIOR LEADS- CONSIDER ISCHEMIA BASELINE ARTIFACT- I, III, AVR, AVL, V1 ABNORMAL ECG COMPARED TO ECG 03/14/2023 22:27:11 SINUS RHYTHM NOW PRESENT T WAVE ABNORMALITY NOW PRESENT Electronically Signed On 03-15-2023 13:54:14 STRAIN TECHNICIAN by Tea Aggarwal D.O.
== END 2023-03-15 03:28 | disposition short-term general hospital (02) ==
PROVIDERS: Emergency Provider Emergency Medicine; PCP Emergency Medicine
DX: I26.02 Saddle embolus of pulmonary artery with acute cor pulmonale (principal); J45.909 Unspecified asthma, uncomplicated; I10 Essential (primary) hypertension; Z85.3 Personal history of malignant neoplasm of breast
CPT/HCPCS: 36415; 71046; 71275; 80053; 83690; 83880; 84145; 84484; 85025; 85610; 85730; 87637; 93005; 96365; 96366; 99291; A9270; J1644; Q9967

== ENCOUNTER 2023-08-10 07:27 | Outpatient (CLI) | payer OTHER, SELFPAY ==
[2023-08-10 08:19] LABS: Alanine Aminotransferase 23 U/L (6-35); Albumin Level 4.2 g/dL (3.5-5.1); Alkaline Phosphatase 71 U/L (38-126); Anion Gap 7 mmol/L (4-12); Aspartate Amino Transferase 25 U/L (14-36); Bilirubin,Total 0.6 mg/dL (0.2-1.3); Blood Urea Nitrogen 15 mg/dL (7-17); Carbon Dioxide 28 mmol/L (22-30); Chloride 106 mmol/L (98-107); Cholesterol 211 mg/dL (0-200); Estimated Glomerular Filt Rate > 60; Glucose 113 mg/dL (65-110); HDL Direct 48 mg/dL; Potassium 4.3 mmol/L (3.4-5.0); Sodium 141 mmol/L (137-145); Triglycerides 148 mg/dL (<150)
[2023-08-10 08:32] LABS: LDL Cholesterol Direct 143 mg/dL
== END 2023-08-10 07:28 | disposition home or self-care (01) ==
LOC: ANHLAB 07:28
PROVIDERS: PCP Emergency Medicine; Visit Provider Emergency Medicine
DX: E78.5 Hyperlipidemia, unspecified (principal); I10 Essential (primary) hypertension; E55.9 Vitamin D deficiency, unspecified; R73.9 Hyperglycemia, unspecified
CPT/HCPCS: 36415; 80053; 80061; 82306; 83036

== ENCOUNTER 2023-09-13 10:02 | Outpatient (CLI) | payer OTHER, SELFPAY | END 2023-09-13 10:03 | disposition home or self-care (01) | LOC: ANHLAB 10:03 | PROVIDERS: PCP Emergency Medicine; Visit Provider Emergency Medicine | DX: E55.9 Vitamin D deficiency, unspecified (principal) | CPT/HCPCS: 36415; 82306 ==

== ENCOUNTER 2024-07-18 08:23 | Outpatient (CLI) | payer OTHER, SELFPAY ==
--- OUTSIDE RECORDS SUMMARY | 2024-07-18 08:29 | XMS_ITS | Clinical Summary ---
Author Organization [facility] Address [address] [place] [id number] Care Team Providers Care Industrial Cleaning Technician Name Role Phone Alejandro Zayas MD Primary Care Provide r Idris Mendenhall MD Unavailable [phone] Shannon Mathur MD Unavailable [phone] Allergies No known active allergies Medications albuterol HFA (PROVENTIL HFA,VENTOLIN HFA,PROAIR HFA) 90 mcg/actuation inhaler Inhale 2 puffs every 4 (four) hours as needed for wheezing 12/26/2020 Active metoprolol XL (TOPROL-XL) 50 mg extended release tablet Activ e losartan (COZAAR) 50 mg tablet 09/03/2023 Active apixaban (ELIQUIS) 2.5 mg tabletIndicatio ns:Venous Thrombosis Take 1 tablet (2.5 mg total) by mouth every 12 (twelve) hours 180 tablet 3 09/20/2023 Active calcium carbonate (OS-ABY) 648 mg (260 mg elemental) tablet 260 mg Active Active Problems Problem Noted Date Diagnosed Date Aromatase inhibitor use 01/30/2024 Encounter for monitoring aromatase inhibitor the rapy 01/30/2024 History of pulmonary embolism 01/30/2024 Acute saddle pulmonary embol ism, unspecified whether acute cor pulmonale present 03/15/2023 Family history of breast cancer 07/13/2021 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 Cancer Staging:Clinical: cT0, cN0, cM0, G1, ER+ - Signed by Idris Mendenhall MD on 03/28/2021 Resolved Problems Problem Noted Date Diagnosed Date Resolved Date Prophylactic use of tamoxifen 01/18/2022 01/30/2024 Encounter for monitoring tamoxifen therapy 01/18/2022 01/30/2024 Encounter for nonprocreative genetic counseling and testing 07/13/2021 01/18/2022 Encounter to discuss treatment options 07/13/2021 01/18/2022 Abnormal mammogram 02/08/2021 Encounters Date Type Department Care Team Description 05/14/2024 Documentation [facility] Hematology [address] [place] [address] Genie Jimenez RMA Prior Auth (Eliquis Approved through 11/08/24) from Last 3 Months Surgical History Surgery Date Site/Laterality Comments ANTERIOR CRUCIATE LIGAMENT REPAIR 02/20/2004 - 5 Right SECTION 1997, 1999 BREAST BIOPSY 02/20/2020 - 02/18/2021 Left papilloma BREAST LUMPECTOMY Left HYSTERECTOMY 06/02/2022 total Medical History Medical History Date Comments Hypertension Asthma Motion sickness DVT (deep venous thrombosis) (HCC) PE (pulmonary thromboembolism) (HCC) Family History Medical History Relation Name Comments Atrial fibrillation Father Heart disease Father Skin cancer Father Breast cancer Father's Sister Endometrial cancer Mother Heart attack Mother Relation Name Status Comments Father Alive Father's Sister Mother [place] in her mid 5 0s Social History Tobacco Use Types Packs/Day Years Used Date Smoking Tobacco: Never Smokeless Tobacco: Never Tobacco Cessation:Counseling Given: Not Answered AUDIT-C Answer Date Recorded Q1: How often do you have a drink containing alc ohol? 2-4 times a month 01/30/2024 Q2: How many drinks containi ng alcohol do you have on a typical day when you are drinking? 5 or 6 01/30/2024 Frequency of Binge Drinking Not on file 01/19 Personal Safety Answer Date Recorded Have you ever been in or are you currently in a harmful physical or emotional relationship or is someone making you feel afraid or unsafe? 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 Gender Identity Not on file Sexual Orientation Not on file Obstetrics History Last Filed Vital Signs Vital Sign Reading Time Taken Comments Blood Pressure 131/69 01/30/2024 11:45 AM DEPARTMENT STORE MANAGER Pulse 74 01/30/2024 11:45 AM DEPARTMENT STORE MANAGER Temperature 36.7 C (98.1 F) 01/30/2024 11:45 AM DEPARTMENT STORE MANAGER Respiratory Rate 18 07/03/2023 10:1 1 AM CDT Oxygen Saturation 98% 01/30/2024 11: 45 AM DEPARTMENT STORE MANAGER Inhaled Oxygen Concentration - - Weight 102.8 kg (226 lb 9.6 oz) 024 11:45 AM DEPARTMENT STORE MANAGER Height 157.5 cm (5' 2.01) 09/18/2023 9:18 AM CD T Body Mass Index 41.43 09/18/2023 9:18 AM CDT Plan of Treatment Health Maintenance Due Date Last Done Comments Colon Cancer Screening-Colonoscopy 1968 Depression Screening 1968 Hepatitis C Screening 1968 DTaP/Tdap/Td Vaccine (1 - Tdap) 1979 Hepatitis B Screening 1986 Regular Well Visit/Exam 18-64 1986 Zoster Vaccine (1 of 2) 2018 Covid-19 Vaccine (2023-2 5 season) 2023 01/31/2021, 04/20/2020, 03/18/2020 Breast Cancer Screening-Mammogram 09/17/2024 09/18/2023, 09/15/2022, 09/13/2021 Influenza Vaccine (Season Ended) 2024 01/04/2020 Pneumococcal vaccine <65 Aged Out No longer eligible based on patient's age to complete this topic Medical Devices Implanted Type Area Quill Worker Device Identifier Shelf Expiration Date Model / Serial / Lot [employer] [id number] Magseed 18ga 7cm Marker Breast Biopsy - [id number] Implanted:Qty : 1 on 02/28/2021 at [facility] [employer] [id number] [employer] Device Clsr Perclose Prostyle Sut-Mediatd Closure-Repai r Sys [id number] - [id number] Implanted:Qty : 1 on 03/15/2023 by Coy Leigh MD at [facility] Right: Femoral [employer] [id number] / / [id number] Procedures Procedure Name Priority Date/Time Associated Diagnosis Comments DIAGNOSTIC MAMMOGRAM BILATERAL W PIERRE Schedule Routine, Read Routine (OP Routine) 09/18/2023 10:10 AM CDT Ductal carcinoma in situ (DCIS) of left breast Abnormal mammogram from Last 3 Months or Most Recently Relevant to Health Maintenance Results * Diagnostic Mammogram Bilateral W Pierre (09/18/2023 10:10 AM CDT) Anatomical Region Laterality Modality Breast Bilateral Mammography 09/18/2023 10:1 7 AM CDT Impressions 09/18/2023 10:17 AM CDT Left breast conservation therapy changes. OVERALL FINAL ASSESSMENT: BI-RADS Category 2: Benign. RECOMMENDATION: Annual diagnostic mammography is recommended. Electronically signed by: Dannielle Britt M.D. Narrative 09/18/2023 10:17 AM CDT EXAMINATION: BILATERAL DIGITAL DIAGNOSTIC MAMMOGRAM INCLUDING CAD AND BILATERAL DIGITAL BREAST TOMOSYNTHESIS HISTORY: History of left breast carcinoma in 2021 COMPARISON: Priors dating back to 2020 TECHNIQUE: Full field digital mammographic views of BOTH breasts were performed, including computer aided detection (CAD) and BILATERAL digital breast tomosynthesis (DBT). BREAST PARENCHYMAL COMPOSITION: There are scattered areas of fibroglandular density. MAMMOGRAM FINDINGS: There is no new suspicious abnormality within EITHER breast; the appearance of BOTH breasts is stable compared to prior exams. Left breast conservation therapy changes are present, unchanged. Procedure Note Dannielle Britt MD - 09/18/2023 EXAMINATION: BILATERAL DIGITAL DIAGNOSTIC MAMMOGRAM INCLUDING CAD AND BILATERAL DIGITAL BREAST TOMOSYNTHESIS HISTORY: History of left breast carcinoma in 2021 COMPARISON: Priors dating back to 2020 TECHNIQUE: Full field digital mammographic views of BOTH breasts were performed, including computer aided detection (CAD) and BILATERAL digital breast tomosynthesis (DBT). BREAST PARENCHYMAL COMPOSITION: There are scattered areas of fibroglandular density. MAMMOGRAM FINDINGS: There is no new suspicious abnormality within EITHER breast; the appearance of BOTH breasts is stable compared to prior exams. Left breast conservation therapy changes are present, unchanged. IMPRESSION: Left breast conservation therapy changes. OVERALL FINAL ASSESSMENT: BI-RADS Category 2: Benign. RECOMMENDATION: Annual diagnostic mammography is recommended. Electronically signed by: Dannielle Britt M.D. Shannon Mathur MD IMG MAMMO PROCEDURES Fi nal Result from Last 3 Months or Most Recently Relevant to Health Maintenance Insurance [facility] PL[facility] PL[facility] Advance Directives For more information, please contact: [phone] * Full Code (Latest Code Status on File) Date Activated Date Inactivated Comments 03/15/2023 6:03 AM 03/18/2023 3:19 PM Care Teams Industrial Cleaning Technician Relationship Specialty Start Date End Date Alejandro Zayas MD [address] [place] [address] PCP - General Emergency Medicine 01/10/21 Idris Mendenhall MD [address] [place] [address] Radiation Oncologist Radiation Oncology 03/28/21 Shannon Mathur MD [address] [place] [address] Surgeon Surgical Oncology 05/23/21
--- OUTSIDE RECORDS SUMMARY | 2024-07-18 08:29 | XMS_ITS | Continuity of Care Document ---
Author Organization [facility] Address [address] [place] [address] [address] [place] [address] Phone Care Team Providers Care Airframe And Powerplant Mechanic Name Role Phone Alejandro Khalil MD Unavailable Unavailable Allergies, Adverse Reactions, Alerts Substance Reaction Status Criticality No Known allergies Medications Medication Instructions Dosage Effective Dates (start - stop) Status Comments Xopenex HFA 45 mcg/Actuation Aerosol Inhaler Inhale two times by mouth every 4 hours as [id number] day supply - Active Advair Diskus 100 mcg-50 mcg/dose for Inhalation 1 inhalation treatment twice daily90 day supply - Active Intal 112 800 mcg/Actuation Aerosol Inhaler 2 puffs prior to pet exposure. - Active Advair Diskus 100 mcg-50 mcg/dose for Inhalation 1 inhalation treatment twice daily90 day supply - No Longer Active Xopenex HFA 45 mcg/Actuation Aerosol Inhaler Inhale two times by mouth every 4 hours as naqkei74 day supply - No Longer Active Procedures Procedure Date Pulmonary Function Screen Est (Level 4) OFFICE/OUTPATIENT VISIT Ap Pulmonary Function Screen Est (Level 4) OFFICE/OUTPATIENT VISIT Fe OFFICE/OUTPATIENT VISIT, EST IMMUNIZATION ADMIN FLU VACCINE, 3 YRS & >, IM OFFICE/OUTPATIENT VISIT, EST IMMUNIZATION ADMIN FLU VACCINE, 3 YRS & >, IM OFFICE/OUTPATIENT VISIT, EST BREATHING CAPACITY TEST Advance Directives Directive Yes / No Effective Date File Name No Information Encounters Encounter Description Practice Location Reason(s) For Visit Diagnoses Date Provider Providers Copied on Encounter [facility], [address] [place] [address], [address] [place] [address], tel:[phone] [facility] No Information 1 Remi Allen. [address] [place] [address], [place], [place], [address] [place] [address] , . tel:[phone] Referring Provider: Alejandro Cordoba, [address] [place] [address], [place], [place], [address] [place] [address] . tel:[phone] Est (Level 4) OFFICE/OUTPA TIENT VISIT [facility], [address] [place] [address], [address] [place] [address], tel:[phone] [facility] asthma (chief complaint) ASTHMA,UNSPECIFIE D TYPE, UNSPECIFIED 1 Remi Allen. [address] [place] [address], [address] [place] [address] , . tel:[phone] Referring Provider: Alejandro Cordoba, [address] [place] [address], [place], [place], [address] [place] [address] . tel:[phone] Est (Level 4) OFFICE/OUTPA TIENT VISIT [facility], [address] [place] [address], [address] [place] [address], tel:[phone] [facility] asthma (chief complaint) ASTHMA,UNSPECIFIE D TYPE, UNSPECIFIED 0 Remi Allen. [address] [place] [address], [address] [place] [address] , . tel:[phone] Referring Provider: Alejandro Cordoba, [address] [place] [address], [place], [place], [address] [place] [address] . tel:[phone] OFFICE/OUTPA TIENT VISIT, EST [facility], [address] [place] [address], [address] [place] [address], tel:[phone] [facility] asthma (chief complaint) ASTHMA,UNSPECIFIE D TYPE, UNSPECIFIED 9 Remi Allen. [address] [place] [address], [place] [address], [place], [address] [place] [address] , . tel: [phone] Referring Provider: Alejandro Cordoba, [address] [place] [address], [place], [address] [place] [address] . tel:[phone] OFFICE/OUTPA TIENT VISIT, EST [facility], [address] [place] [address], [address] [place] [address], tel:[phone] [facility] asthma (chief complaint) No Information 7 Remi Allen. [address] [place] [address], [place] [address], [place], [address] [place] [address] , . tel: [phone] Referring Provider: Alejandro Cordoba, [address] [place] [address] [facility], [place], [place], [address] [place] [address] . tel:[phone] OFFICE/OUTPA TIENT VISIT, EST [facility], [address] [place] [address], [address] [place] [address], tel:[phone] [facility] asthma (chief complaint) ASTHMA,UNSPECIFIE D TYPE, UNSPECIFIEDEXTRIN SIC ASTHMA, UNSPECIFIED 7 Remi Allen. [address] [place] [address], [place] [address], [place], [address] [place] [address] , . tel: [phone] Family History Family Member Type Diagnosis Age At Onset No Information Immunizations Vaccine Date Status Comments Flu (split) (3 yrs or older) administered Source: New Immunization Record flu (split) (3 yrs or older) administered Source: New Immunization Record Payers Payer name Insurance type Covered green party ID Authoriza tiemelia(s) [facility] CI [id number] Social History Type Description Quantity Date Captured Comments Sex Female Smoking Status No Information Chief Complaint And Reason For Visit No Information Reason For Referral Reason For Referral No Information History Of Present Illness Encounter Date Complaint History Of Prese nt Illness No Information Functional Status Date Functional Assessmen t No Information Instructions Date Instruction Additional Infor mation Prescribe medications Renew medications Review medications Assessments Type Assessment Date No Information Patient Care Teams Name Effective Dates (start - stop) Status Members No Information
--- OUTSIDE RECORDS SUMMARY | 2024-07-18 08:29 | XMS_ITS ---
Author Organization [facility] Address [address] [place] [address] Care Team Providers Care Solid Center Winder Name Role Phone Alejandro Zayas MD Primary Care Provide r Idris Mendenhall MD Unavailable [phone] Shannon Mathur MD Unavailable [phone] Active Problems Problem Noted Date Diagnosed Date [...] Signed by Idris Mendenhall MD on 03/28/2021 Current Treatment and Therapy Plans No current plan information found. Past Treatment and Therapy Plans No past plan information found. Lifetime Dose Tracking * Chemical Lifetime Dose Automatic Entry Manual Entr y DLP 411 mGycm 411 mGycm 0 mGycm Resolved Problems Problem Noted Date Diagnosed Date Resolved Date Prophylactic use of tamoxifen 01/18/2022 01/30/2024 Encounter for monitoring tamoxifen therapy 01/18/2022 01/30/2024 Encounter for nonprocreative genetic counseling and testing 07/13/2021 01/18/2022 Encounter to discuss treatment options 07/13/2021 01/18/2022 Abnormal mammogram 02/08/2021
--- OUTSIDE RECORDS SUMMARY | 2024-07-18 08:29 | XMS_ITS | Referral Summary ---
Author Organization [facility] Address [address] [place] [address] Care Team Providers Care Torque Tester Name Role Phone Alejandro Zayas MD Primary Care Provide r Idris Mendenahll MD Unavailable [phone] Shannon Mathur MD Unavailable [phone] Encounters Date Type Department Care Team Description 05/14/2024 Documentation [facility] Hematology [address] [place] [address] Genie Jimenez RMA Prior Auth (Eliquis Approved through 11/08/24) from Last 3 Months Allergies No known active allergies Medications albuterol [...] treatment options 07/13/2021 01/18/2022 Abnormal mammogram 02/08/2021 Social History Tobacco Use Types Packs/Day Years [...] on file Legal Sex Female 9:29 AM REFINERY OPERATOR VISBREAKING Gender Identity Not on file Sexual Orientation Not on file Last Filed Vital Signs Vital Sign Reading Time Taken Comments Blood Pressure 131/69 01/30/2024 11:45 AM REFINERY OPERATOR VISBREAKING Pulse 74 01/30/2024 11:45 AM REFINERY OPERATOR VISBREAKING Temperature 36.7 C (98.1 F) 01/30/2024 11:45 AM REFINERY OPERATOR VISBREAKING Respiratory Rate 18 07/03/2023 10:1 1 AM CDT Oxygen Saturation 98% 01/30/2024 11: 45 AM REFINERY OPERATOR VISBREAKING Inhaled Oxygen Concentration - - Weight 102.8 kg (226 lb 9.6 oz) 024 11:45 AM REFINERY OPERATOR VISBREAKING Height 157.5 cm (5' 2.01) 09/18/2023 9:18 AM CD T Body Mass Index 41.43 09/18/2023 9:18 AM CDT Plan of Treatment Not on file Medical Devices Implanted Type Area Container Finisher Device Identifier Shelf Expiration Date Model / Serial / Lot ParAccel Inc [id number] Magseed 18ga 7cm Marker Breast Biopsy - [id number] Implanted:Qty : 1 on 02/28/2021 at [facility] [employer] [id number] Dockery Vascular Device Clsr Perclose Prostyle Sut-Mediatd Closure-Repai r Sys 19672-16 - [id number] Implanted:Qty : 1 on 03/15/2023 by Coy Leigh MD at [facility] Right: Femoral [employer] [id number] / / [id number] Procedures Procedure Name Priority Date/Time Associated Diagnosis Comments DIAGNOSTIC MAMMOGRAM BILATERAL W ASTON Schedule Routine, Read Routine (OP Routine) 09/18/2023 10:10 AM CDT Ductal carcinoma in situ (DCIS) of left breast Abnormal mammogram from Last 3 Months or Most Recently Relevant to Health Maintenance Results * Diagnostic Mammogram Bilateral W Aston (09/18/2023 10:10 AM CDT) Anatomical Region Laterality [...] Most Recently Relevant to Health Maintenance Insurance [facility] PLUS [facility] [place] [address] [facility] PL[facility] Advance Directives For more information, please contact: [phone] * Full Code (Latest Code Status on File) Date Activated Date Inactivated Comments 03/15/2023 6:03 AM 03/18/2023 3:19 PM Care Teams Torque Tester Relationship Specialty Start Date End Date Alejandro Zayas MD [address] [place] [address] PCP - General Emergency Medicine 01/10/21 Idris Mendenhall MD [address] [facility] [address] Radiation Oncologist Radiation Oncology 03/28/21 Shannon Mathur MD [address] [place] [address] Surgeon Surgical Oncology 05/23/21
[2024-07-18 09:25] LABS: Alanine Aminotransferase 22 U/L (6-35); Albumin Level 4.5 g/dL (3.5-5.1); Alkaline Phosphatase 75 U/L (38-126); Anion Gap 9 mmol/L (4-12); Aspartate Amino Transferase 32 U/L (14-36); Bilirubin,Total 0.6 mg/dL (0.2-1.3); Blood Urea Nitrogen 18 mg/dL (7-17); Calcium 9.4 mg/dL (8.4-10.2); Carbon Dioxide 27 mmol/L (22-30); Chloride 104 mmol/L (98-107); Estimated Glomerular Filt Rate > 60; Glucose 95 mg/dL (65-110); Potassium 3.9 mmol/L (3.4-5.0); Sodium 140 mmol/L (137-145)
[2024-07-18 09:40] LABS: Vitamin D 25 Hydroxy 57.7 ng/mL
[2024-07-18 09:58] LABS: Hemoglobin A1C 5.6 % (<5.7)
== END 2024-07-18 08:24 | disposition home or self-care (01) ==
LOC: ANHLAB 08:25
PROVIDERS: PCP Emergency Medicine; Visit Provider Emergency Medicine
DX: E78.5 Hyperlipidemia, unspecified (principal); E11.9 Type 2 diabetes mellitus without complications; E55.9 Vitamin D deficiency, unspecified
CPT/HCPCS: 36415; 80053; 82306; 83036

== ENCOUNTER 2024-12-23 15:08 | Outpatient (CLI) | payer OTHER, SELFPAY ==
--- NOTE | ~2024-12-23 | XR_ITS ---
EXAMINATION: XR shoulder RT min 2V, 12/23/2024 15:30 REGULATOR OPERATOR HISTORY: M25.511 - Pain in right shoulder COMPARISON: No comparisons available. Findings: No acute fracture or malalignment. Moderate degenerative changes with minimal calcific tendinopathy Soft tissues unremarkable. Impression: No acute fracture or malalignment. Reviewed, dictated and finalized at location P. LATOR OPERATOR Impression: No acute fracture or malalignment.
== END 2024-12-23 15:09 | disposition home or self-care (01) ==
LOC: MICIMG 15:09
PROVIDERS: PCP Emergency Medicine; Visit Provider Emergency Medicine
DX: M19.011 Primary osteoarthritis, right shoulder (principal)
CPT/HCPCS: 73030

== ENCOUNTER 2025-01-20 13:49 | Outpatient (CLI) | payer OTHER, SELFPAY ==
--- NOTE | 2025-01-20 14:06 | ECG_ITS ---
Test Date: 2025-01-20 14:26:48 Measurements Intervals [place] Rate: 76 P: 23 [place]: 141 QRS: 50 QRSD: 78 T: 47 QT: 357 QTc: 402 Interpretive Statements SINUS RHYTHM BASELINE ARTIFACT- I, II, III, AVR, AVL, AVF, V1-V6 NORMAL ECG No previous ECG available for comparison Electronically Signed On 01-20-2025 14:45:32 ENGINEERING FACULTY by Tae Aggarwal D.O.
[2025-01-20 14:17] LABS: Hematocrit 39.3 % (37.0-47.0); Hemoglobin 13.2 g/dL (12.0-15.0); Mean Corpuscular HGB Conc 33.6 g/dl (32-36); Mean Corpuscular Hemoglobin 29.9 pg (26-34); Mean Corpuscular Volume 89.1 fl (80-100); Platelet Count Result 238 k/mm3 (150-375); Red Blood Count 4.41 M/mm3 (4.2-5.4); White Blood Count 7.7 K/mm3 (4.5-10.0)
[2025-01-20 14:31] LABS: Alanine Aminotransferase 19 U/L (6-35); Albumin Level 4.1 g/dL (3.5-5.1); Alkaline Phosphatase 59 U/L (38-126); Anion Gap 5 mmol/L (4-12); Aspartate Amino Transferase 21 U/L (14-36); Bilirubin,Total 0.5 mg/dL (0.2-1.3); Blood Urea Nitrogen 23 mg/dL (7-17); Calcium 9.1 mg/dL (8.4-10.2); Carbon Dioxide 27 mmol/L (22-30); Chloride 106 mmol/L (98-107); Estimated Glomerular Filt Rate > 60; Glucose 119 mg/dL (65-110); Potassium 3.8 mmol/L (3.4-5.0); Sodium 138 mmol/L (137-145); Total Protein 7.3 g/dL (6.3-8.2)
--- OUTSIDE RECORDS SUMMARY | 2025-01-20 14:54 | XMS_ITS ---
Author Organization [facility] Address [address] [place] [address] Care Team Providers Care Rehabilitation Assistant Name Role Phone Alejandro Zayas MD Primary Care Provide r Idris Mendenhall MD Unavailable [phone] Shannon Mathur MD Unavailable [phone] Active Problems Problem Noted Date Diagnosed Date History of pulmonary embolism 01/30/2024 Acute saddle [...] Problem Noted Date Diagnosed Date Resolved Date Aromatase inhibitor use 01/30/2024 08/0 07/2024 Encounter for monitoring cata matase inhibitor therapy 01/30/2024 09/24/2024 Prophylactic use of tamoxifen 01/18/2022 01/30/2024 Encounter for monitoring tamoxifen therapy 01/18/2022 01/30/2024 Encounter for nonprocreative genetic counseling and testing 07/13/2021 01/18/2022 Encounter to discuss treatment options 07/13/2021 01/18/2022 Abnormal mammogram 02/08/2021
--- OUTSIDE RECORDS SUMMARY | 2025-01-20 14:54 | XMS_ITS | Clinical Summary ---
Author Organization [facility] [address] [place] [id number] Care Team Providers Care Health Data Administrator Name Role Phone Alejandro Zayas MD Primary Care Provide r Idris Mendenhall MD Unavailable [phone] Shannon Mathur MD Unavailable [phone] Allergies No known active allergies Medications albuterol HFA (PROVENTIL HFA,VENTOLIN HFA,PROAIR HFA) 90 mcg/actuation inhaler Inhale 2 puffs every 4 (four) hours as needed for wheezing 1 Active metoprolol XL (TOPROL-XL) 50 mg extended release tablet Activ e losartan (COZAAR) 50 mg tablet 4 Active calcium carbonate (OS-ABY) 648 mg (260 mg elemental) tablet 260 mg Active Eliquis 2.5 mg tabletIndication s:Acute saddle pulmonary embolism, unspecified whether acute cor pulmonale present (HCC) TAKE 1 TABLET EVERY 12 HOURS 180 tablet 3 5 Active Vitamin D3 50 mcg (2,000 unit) tablet Take 2 tablets (4,000 Units total) by mouth daily 5 Active cyclobenzaprine (FLEXERIL) 5 mg tablet as needed 5 Active Active Problems Problem Noted Date Diagnosed [...] Date Resolved Date Aromatase inhibitor use 01/30/2024 08/07/2024 Encounter for monitoring cata matase inhibitor therapy 01/30/2024 09/24/2024 Prophylactic use of tamoxifen 01/18/2022 01/30/2024 Encounter for monitoring tamoxifen therapy 01/18/2022 01/30/2024 Encounter for nonprocreative genetic counseling and testing 07/13/2021 01/18/2022 Encounter to discuss treatment options 07/13/2021 01/18/2022 Abnormal mammogram 02/08/2021 Encounters Date Type Department Care Team Description 01/05/2025 9:30 AM BALLAST CLEANING OPERATOR Office Visit [facility] Medicine Hematology [address] [place] [phone] Flori Laboy NP Acute saddle pulmonary embolism, unspecified whether acute cor pulmonale present (HCC) (Primary Dx) 01/05/2025 9:00 AM BALLAST CLEANING OPERATOR Lab [facility] [place] - Lab Collection [address] [place] [id number] Acute saddle pulmonary embolism, unspecified whether acute cor pulmonale present (HCC) 01/05/2025 8:45 AM BALLAST CLEANING OPERATOR Lab [facility] Medicine Oncology Lab [address] [place] [phone] 11/03/2024 Documentation [facility] Medicine Hematology [address] [place] [phone] Genie Jimenez RMA Prior Auth (Eliquis Approved through 11/03/25) from Last 3 Months Immunizations Immunization Administration Dates Next Due Influenza, Quadrivalent, Spl it, Preservative Free, Intramuscular 01/04/2020 Surgical History Surgery Date Site/Laterality Comments ANTERIOR CRUCIATE LIGAMENT REPAIR 02/20/2004 - 5 Right SECTION 1997, 1999 BREAST BIOPSY 02/20/2020 - 02/18/2021 Left papilloma BREAST LUMPECTOMY Left HYSTERECTOMY 06/02/2022 total Medical History Medical History Date Comments Hypertension Asthma Motion sickness DVT (deep venous thrombosis) PE (pulmonary thromboembolism) Aromatase inhibitor use 01/30/2024 Family History Medical History Relation Name Comments Breast cancer Cousin paternal Atrial fibrillation Father Heart disease Father Skin cancer Father Breast cancer Father's Sister Endometrial cancer Mother Heart attack Mother Relation Name Status Comments Cousin Father Alive Father's Sister Mother [place] in her mid 5 0s Social History Tobacco Use Types Packs/Day Years Used Date Smoking Tobacco: Never Passive Smoke Exposure: Never Smokeless Tobacco: Never Tobacco Cessation:Counseling Given: [...] on file Legal Sex Female 9:29 AM BALLAST CLEANING OPERATOR Gender Identity Not on file Sexual Orientation Not on file Obstetrics History Para Term AB IAB SAB Ectopic Multiple Livin g Live Births 2 2 Date Outcome GA Total Labor Labor/2nd/3rd Weight Sex Type Anes PTL Janett A1 A5 Name Clin Last Filed Vital Signs Vital Sign Reading Time Taken Comments Blood Pressure 146/85 01/05/2025 9:13 AM BALLAST CLEANING OPERATOR Pulse 80 01/05/2025 9:13 AM BALLAST CLEANING OPERATOR Temperature 36.6 C (97.9 F) 01/05/2025 9:13 AM BALLAST CLEANING OPERATOR Respiratory Rate 16 01/05/2025 9:13 AM BALLAST CLEANING OPERATOR Oxygen Saturation 98% 01/05/2025 9:13 AM BALLAST CLEANING OPERATOR Inhaled Oxygen Concentration - - Weight 95.2 kg (209 lb 12.8 oz) 01/05/2025 9:13 AM BALLAST CLEANING OPERATOR Height 159.3 cm (5' 2.7) 01/05/2025 9:13 AM BALLAST CLEANING OPERATOR Body Mass Index 37.52 01/05/2025 9:13 AM BALLAST CLEANING OPERATOR Plan of Treatment Health Maintenance Due Date Last Done Comments Colon Cancer Screening-Colonoscopy 1968 Depression Screening 1968 Hepatitis C Screening 1968 DTaP/Tdap/Td Vaccine (1 - Tdap) 1979 Hepatitis B Screening 1986 Regular Well Visit/Exam 18-64 1986 Zoster Vaccine (1 of 2) 2018 Covid-19 Vaccine (4 - season) 2024 01/31/2021, 04/20/2020, 03/18/2020 Influenza Vaccine (#1) 2024 01/04/2020 Breast Cancer Screening-Mammogram 09/24/2025 09/24/2024, 09/18/2023, 09/15/2022, Additional history exists Pneumococcal vaccine <65 Aged Out No longer eligible based on patient's age to complete this topic Medical Devices Implanted Type Area Plant Manager Device Identifier Shelf Expiration Date Model / Serial / Lot WeTOWNS [id number] Magseed 18ga 7cm Marker Breast Biopsy - [id number] Implanted:Qty : 1 on 02/28/2021 at [facility] [employer] [id number] [employer] Device Clsr Perclose Prostyle Sut-Mediatd Closure-Repai r Sys [id number] - [id number] Implanted:Qty : 1 on 03/15/2023 by Coy Leigh MD at [facility] Right: Femoral [employer] [id number] / / [id number] Procedures Procedure Name Priority Date/Time Associated Diagnosis Comments EGFR Routine 01/05/2025 8:52 AM BALLAST CLEANING OPERATOR Acute saddle pulmonary embolism, unspecified whether acute cor pulmonale present (HCC) DIFFERENTIAL AUTO Routine 01/05/2025 8:5 2 AM BALLAST CLEANING OPERATOR Acute saddle pulmonary embolism, unspecified whether acute cor pulmonale present (HCC) CBC WITH AUTO DIFFERENTIAL Routine 01/05/2025 8:52 AM BALLAST CLEANING OPERATOR Acute saddle pulmonary embolism, unspecified whether acute cor pulmonale present (HCC) COMPREHENSIVE METABOLIC PANEL Routine 01/05/2025 8:52 AM BALLAST CLEANING OPERATOR Acute saddle pulmonary embolism, unspecified whether acute cor pulmonale present (HCC) FERRITIN Routine 01/05/2025 8:52 AM BALLAST CLEANING OPERATOR Acute saddle pulmonary embolism, unspecified whether acute cor pulmonale present (HCC) IRON PROFILE W/ IBC Routine 01/05/2025 8 :52 AM BALLAST CLEANING OPERATOR Acute saddle pulmonary embolism, unspecified whether acute cor pulmonale present (HCC) RETICULOCYTES Routine 01/05/2025 8:52 AM BALLAST CLEANING OPERATOR Acute saddle pulmonary embolism, unspecified whether acute cor pulmonale present (HCC) SCREENING MAMMOGRAM BILATERAL W PIERRE Schedule Routine, Read Routine (OP Routine) 09/24/2024 9:46 AM CDT Ductal carcinoma in situ (DCIS) of left breast from Last 3 Months or Most Recently Relevant to Health Maintenance Results * eGFR (01/05/2025 8:52 AM BALLAST CLEANING OPERATOR) eGFR >90 >=60 mL/min/1. 73 m2 Comment: Interpretive Data Reference Interval Normal >/= 90 mL/min/1.73m2 Mildly decreased* 60 - 89 mL/min/1.73m2 Mildly to moderately decreased 45 - 59 mL/min/1.73m2 Moderately to severely decreased 30 - 44 mL/min/1.73m2 Severely decreased 15 - 29 mL/min/1.73m2 Kidney Failure < 15 mL/min/1.73m2 *Relative to young adult level Estimated glomerular filtration rate is determined by the 2020 CKD-EPI equation recommended by the National Kidney Foundation (A Unifying Approach to GFR Estimation: Recommendations of the NKF-ASK Task Force on Reassessing the Inclusion of Race in Diagnosing Kidney Disease, JASN 2020). The CKD-EPI equation should not be used for patients with unstable renal function and has not been validated in children and those over 70. Current interpretive data was last reviewed 2020. Blood 01/05/2025 8:52 AM BALLAST CLEANING OPERATOR 01/05/2025 9:17 AM BALLAST CLEANING OPERATOR Flori Amber Golec COMMERCIAL OR INSTITUTIONAL CLEANER LAB BLOOD ORDERABLES Final Result [facility] Department [place] [address] * Differential, auto (01/05/2025 8:52 AM BALLAST CLEANING OPERATOR) Neutrophil abs 3.46 1.50 - 6.50 K/cumm Comment:Testing performed by : [facility], [address] [place] [phone] Lymphocyte abs 2.71 0.80 - 3.30 K/cumm CERNER BJ Comment:Testing performed by : [facility], [address] [place] [phone] Monocyte abs 0.58 0.20 - 0.80 K/cumm CERNER BJ Comment:Testing performed by : [facility], [address] [place] [phone] Eosinophil abs 0.14 0.00 - 0.50 K/cumm CERNER BJ Comment:Testing performed by : [facility], [address] [place] [phone] Basophil abs 0.04 0.00 - 0.10 K/cumm CERNER BJ Comment:Testing performed by : [facility], [address] [place] [phone] Neutrophil pct 49.9 % CERNER BJ Comment: Interpretive Data Percent cell count reference ranges are not reported, since discordance with absolute values may lead to misinterpretation of CBC data. Current Interpretive Data was last revised on 2017. Testing performed by: [facility], [address] [place] [phone] Lymphocyte pct 39.1 % CERNER BJ Comment: Interpretive Data Percent cell count reference ranges are not reported, since discordance with absolute values may lead to misinterpretation of CBC data. Current Interpretive Data was last revised on 2017. Testing performed by: [facility], [address] [place] [phone] Monocyte pct 8.3 % CERNER BJ Comment: Interpretive Data Percent cell count reference ranges are not reported, since discordance with absolute values may lead to misinterpretation of CBC data. Current Interpretive Data was last revised on 2017. Testing performed by: [facility], [address] [place] [phone] Eosinophil pct 2.1 % [facility] Comment: Interpretive Data Percent cell count reference ranges are not reported, since discordance with absolute values may lead to misinterpretation of CBC data. Current Interpretive Data was last revised on 2017. Testing performed by: [facility], [address] [place] [phone] Basophil pct 0.6 % [facility] Comment: Interpretive Data Percent cell count reference ranges are not reported, since discordance with absolute values may lead to misinterpretation of CBC data. Current Interpretive Data was last revised on 2017. Testing performed by: [facility], [address] [place] [phone] Blood 01/05/2025 8:52 AM BALLAST CLEANING OPERATOR 01/05/2025 9:07 AM BALLAST CLEANING OPERATOR Flori Laboy COMMERCIAL OR INSTITUTIONAL CLEANER LAB BLOOD ORDERABLES Final Result [facility] [place] [address] * Iron profile w/ IBC (01/05/2025 8:52 AM BALLAST CLEANING OPERATOR) Iron 96 35 - 145 mcg/dL TIBC 304 250 - 400 mcg/dL [facility] Transferrin saturation 32 20 - 50 % [facility] Blood 01/05/2025 8:52 AM BALLAST CLEANING OPERATOR 01/05/2025 9:17 AM BALLAST CLEANING OPERATOR Flori Laboy COMMERCIAL OR INSTITUTIONAL CLEANER LAB BLOOD ORDERABLES Final Result [facility] [place] [address] * CBC with auto differential (01/05/2025 8:52 AM BALLAST CLEANING OPERATOR) WBC 6.93 3.80 - 9.90 K/cumm Comment:Testing performed by : [facility], [address] [place], [place] [id number] Hgb 14.2 11.9 - 15.5 g/dL CERNER BJ Comment:Testing performed by : [facility], [address] [place], [place] [id number] Hct 42.8 35.6 - 45.5 % CERNER BJ Comment:Testing performed by : [facility], [address] [place], [place] [id number] Plt 237 150 - 400 K/cumm CERNER BJ Comment:Testing performed by : [facility], [address] [place], [place] [id number] MPV 9.1 6.8 - 10.4 fL CERNER BJ Comment:Testing performed by : [facility], [address] [place], [place] [id number] RBC 4.81 3.90 - 5.20 M/cumm CERNER BJ Comment:Testing performed by : [facility], [address] [place], [place] [id number] MCV 89.0 81.3 - 96.4 fL CERNER BJ Comment:Testing performed by : [facility], [address] [place], [place] [id number] MCH 29.6 27.1 - 33.3 pg CERNER BJ Comment:Testing performed by : [facility], [address] [place] [address] MCHC 33.3 32.3 - 35.7 g/dL CERNER BJ Comment:Testing performed by : [facility], [address] [place] [address] RDW CV 13.5 11.1 - 14.9 % CERNER BJ Comment:Testing performed by : [facility], [address] [place] [address] NRBC abs 0.00 0.00 - 0.01 K/cumm CERNER BJ Comment:Testing performed by : [facility], [address] [place] [phone] Blood 01/05/2025 8:52 AM BALLAST CLEANING OPERATOR 01/05/2025 9:07 AM BALLAST CLEANING OPERATOR Flori Laboy COMMERCIAL OR INSTITUTIONAL CLEANER LAB BLOOD ORDERABLES Final Result Performing Organization Address [facility] Co de Phone Number [facility] [place] [address] * Reticulocyte Count (01/05/2025 8:52 AM BALLAST CLEANING OPERATOR) Retics, absolute 60 20 - 100 K/cumm Comment:Testing performed by : [facility], [address] [place] [phone] Retics 1.2 0.5 - 1.8 % [facility] Comment:Testing performed by : [facility], [address] [place] [phone] Blood 01/05/2025 8:52 AM BALLAST CLEANING OPERATOR 01/05/2025 9:07 AM BALLAST CLEANING OPERATOR Flori Laboy COMMERCIAL OR INSTITUTIONAL CLEANER LAB BLOOD ORDERABLES Final Result Performing Organization Address [facility] de Phone Number [facility] [place] [address] * (ABNORMAL) Ferritin (01/05/2025 8:52 AM BALLAST CLEANING OPERATOR) Ferritin 168(H) 13 - 150 ng/mL Blood 01/05/2025 8:52 AM BALLAST CLEANING OPERATOR 01/05/2025 9:17 AM BALLAST CLEANING OPERATOR Flori Laboy COMMERCIAL OR INSTITUTIONAL CLEANER LAB BLOOD ORDERABLES Final Result Performing Organization Address [facility]/ZIP Co de Phone Number [facility] [place] [address] * Comprehensive metabolic panel (01/05/2025 8:52 AM BALLAST CLEANING OPERATOR) Sodium 140 135 - 145 mmol/L Potassium, pl 4.5 3.3 - 4.9 mmol/L [facility] Chloride 104 97 - 110 mmol/L [facility] CO2 29 22 - 32 mmol/L [facility] Anion gap 7 2 - 15 mmol/L [facility] BUN 14 6 - 25 mg/dL [facility] Creatinine 0.75 0.60 - 1.10 mg/dL [facility] Glucose 103 70 - 199 mg/dL [facility] Comment: Interpretive Data Fasting glucose >/= 126 mg/dl is diagnostic for diabetes. Fasting is defined as no caloric intake for at least 8 hours. Fasting glucose between 100 mg/dl to 125 mg/dl is diagnostic of prediabetes. In a patient with classic symptoms of hyperglycemia or hyperglycemic crisis, a random glucose >/= 200 mg/dl is diagnostic for diabetes. In the absence of unequivocal hyperglycemia, results should be confirmed by repeat testing. The classification and Diagnosis of Diabetes Diabetes Care 2021; 46: S19-S40. Current interpretive data was last revised 2022. Calcium 9.6 8.5 - 10.3 mg/dL [facility] Bilirubin, total 0.5 0.1 - 1.2 mg/dL [facility] Protein, pl 7.6 6.5 - 8.5 g/dL [facility] Albumin 4.3 3.5 - 5.0 g/dL [facility] Alk phos 71 40 - 130 Units/L [facility] ALT 14 7 - 45 Units/L [facility] AST 17 10 - 45 Units/L [facility] Blood 01/05/2025 8:52 AM BALLAST CLEANING OPERATOR 01/05/2025 9:17 AM BALLAST CLEANING OPERATOR Flori Laboy NP LAB BLOOD ORDERABLES Final Result [facility] Department [place] [address] * Screening Mammogram Bilateral W Pierre (09/24/2024 9:46 AM CDT) Anatomical Region Laterality Modality Breast Bilateral Mammography Impressions 09/25/2024 3:06 PM CDT Left 1) Post-Surgical Finding: Left breast post-surgical finding. Right No evidence of malignancy. OVERALL BI-RADS FINAL ASSESSMENT: 2 - Benign RECOMMENDATION: Recommend bilateral annual screening mammography. Narrative 09/25/2024 3:06 PM CDT EXAMINATION: Screening Mammogram Bilateral W Pierre: 09/24/2024 COMPARISON: Relevant prior studies available at the time of interpretation were reviewed, including the most recent mammogram on: 09/18/2023. TECHNIQUE: Mammography was performed with 2D and 3D digital breast tomosynthesis (DBT) images. CAD was utilized. BREAST PARENCHYMAL COMPOSITION: The breasts are almost entirely fatty. FINDINGS: Left 1) Post-Surgical Finding: There are post-surgical findings seen in the left breast. Right There is no suspicious mass, calcification, or architectural distortion. Shannon Mathur MD IMG MAMMO PROCEDURES Fi nal Result from Last 3 Months or Most Recently Relevant to Health Maintenance Insurance [facility] CHO[facility] PLUS [facility] HMO/PPO Address: [facility] [address] [place] [address] [place] [address] [facility] CHOICE PLUS [facility] H[facility]/PPO Address: [address] [place] [address] [place] [address] [facility] CHOICE PLUS [facility] HMO/PPO Address: [address] [place] [address] Advance Directives For more information, please contact: [phone] * Full Code (Latest Code Status on File) Date Activated Date Inactivated Comments 03/15/2023 6:03 AM 03/18/2023 3:19 PM Care Teams Health Data Administrator Relationship Specialty Start Date End Date Alejandro Zayas MD [address] [place] [address] PCP - General Emergency Medicine 01/10/21 Idris Mendenhall MD [address] [place] [address] Radiation Oncologist Radiation Oncology 03/28/21 Shannon Mathur MD [facility] [address] [place] [address] Surgeon Surgical Oncology 05/23/21
[2025-01-20 15:06] LABS: Thyroid Stimulating Hormone 3.070 uIU/mL (0.465-4.680)
== END 2025-01-20 13:50 | disposition home or self-care (01) ==
LOC: ANHLAB 13:50
PROVIDERS: PCP Emergency Medicine; Visit Provider Emergency Medicine
DX: E78.5 Hyperlipidemia, unspecified (principal); E03.9 Hypothyroidism, unspecified; D64.9 Anemia, unspecified; R00.2 Palpitations
CPT/HCPCS: 36415; 80053; 84443; 85027; 93005